=== PATIENT | male | born 1945 | race African-American/Black ===

== ENCOUNTER 2018-08-25 17:41 | Inpatient (IN) | payer MEDICARE, OTHER ==
[~2018-08-25] VITALS: Ht 180.3 cm; Wt 73.0 kg
[2018-08-25 17:58] LABS: BASOPHILS % 1.5 % (0.0-2.0); EOSINOPHILS % 2.6 % (0.0-5.0); HEMATOCRIT. 34.6 % (42.0-52.0); HEMOGLOBIN. 11.3 g/dL (14.0-18.0); LYMPHOCYTES % 19.3 % (20.0-50.0); MEAN CORPUSCULAR VOLUME 91.9 fL (80.0-94.0); MEAN PLATELET VOLUME 8.2 fl (7.4-10.4); MONOCYTES % 14.9 % (2.0-8.0); NEUTROPHILS % 61.7 % (40.0-76.0); PLATELET 157 x1000/uL (130-400); RED BLOOD CELL COUNT 3.76 mill/uL (4.7-6.1); RED CELL DISTRIBUTION WIDTH 17.4 % (11.6-14.6)
[2018-08-25 18:04] LABS: CHLORIDE 112 mEq/L (98-107)
[2018-08-25 18:05] LABS: INR 1.2
[2018-08-25 18:08] LABS: ETHANOL BLOOD < 10 mg/dL
[2018-08-25 18:11] LABS: LDL CHOLESTEROL 64 mg/dL (5-100)
[2018-08-25] MEDS ORDERED: DEXTROSE 50% WATER 50ML SYRINGE IV PRN (20:15)
[2018-08-25] MEDS ORDERED: DIPHENHYDRAMINE 50MG/ML VIAL IV PRN (20:15)
[2018-08-25] MEDS ORDERED: MAGNESIUM/ALUMINUM HYDROXIDE/SIMETHICONE 30ML UDC PO PRN (20:15)
[2018-08-25] MEDS ORDERED: LORAZEPAM 2MG/ML CPJ IV PRN (20:15)
[2018-08-25] MEDS ORDERED: HYDROMORPHONE HCL/PF 2MG/ML CPJ IV PRN (20:15)
[2018-08-25] MEDS ORDERED: IPRATROPIUM/ALBUTEROL 0.5-3(2.5)MG/3ML NEB INH PRN (20:15)
[2018-08-25] MEDS: INSULIN LISPRO 100 UNITS/ML SUBCUT SCH (21:00)
[2018-08-25] MEDS: BLOOD SUGAR DIAGNOSTIC STRIP TEST SCH (21:00)
[2018-08-25] MEDS: CLONIDINE 0.1MG TABLET PO PRN (23:49)
[2018-08-26] VITALS (41 sets, daily range): BP systolic 88–211; BP diastolic 55–102
[2018-08-26 00:34] LABS: CREATINE KINASE MB FRACTION 4.8 ng/mL (0.5-3.6)
[2018-08-26] MEDS: CLONIDINE 0.1MG TABLET PO PRN ×2 (05:06→18:22)
[2018-08-26] MEDS: SODIUM CHLORIDE 0.9% INJ 3ML FLUSH IVF SCH ×4 (06:00→22:01)
[2018-08-26 06:20] LABS: BASOPHILS % 0.8 % (0.0-2.0); EOSINOPHILS % 2.8 % (0.0-5.0); HEMATOCRIT. 31.9 % (42.0-52.0); HEMOGLOBIN. 10.7 g/dL (14.0-18.0); LYMPHOCYTES % 22.7 % (20.0-50.0); MEAN CORPUSCULAR VOLUME 92.5 fL (80.0-94.0); MONOCYTES % 13.7 % (2.0-8.0); PLATELET 137 x1000/uL (130-400); RED BLOOD CELL COUNT 3.45 mill/uL (4.7-6.1); RED CELL DISTRIBUTION WIDTH 17.9 % (11.6-14.6)
[2018-08-26 06:23] LABS: CHLORIDE 108 mEq/L (98-107)
[2018-08-26 06:31] LABS: CREATINE KINASE 201 IU/L (39-308)
[2018-08-26 06:32] LABS: T4 FREE 0.79 ng/dL (0.76-1.46)
[2018-08-26 06:34] LABS: CREATINE KINASE MB FRACTION 3.4 ng/mL (0.5-3.6)
[2018-08-26] MEDS: INSULIN LISPRO 100 UNITS/ML SUBCUT SCH ×4 (08:20→21:00)
[2018-08-26] MEDS: BLOOD SUGAR DIAGNOSTIC STRIP TEST SCH ×3 (09:00→21:53)
[2018-08-26] MEDS ORDERED: CLONIDINE 0.3MG TABLET PO PRN (10:15)
[2018-08-26] MEDS ORDERED: LABETALOL 5MG/ML SYR 20 MG/4 ML SYRINGE IV NR (14:00)
[2018-08-26] MEDS ORDERED: NIFEDIPINE XL 90MG TAB PO SCH (14:30)
[2018-08-26 15:00] LABS: CLARITY URINE CLEAR (CLEAR); COLOR URINE YELLOW (YELLOW); KETONES URINE NEGATIVE (NEGATIVE); LEUKOCYTE ESTERASE URINE NEGATIVE (NEGATIVE); NITRITE URINE NEGATIVE (NEGATIVE); OCCULT BLOOD URINE 1+ (NEGATIVE); PROTEIN URINE 3+ (NEGATIVE); SPECIFIC GRAVITY URINE 1.009 (1.005-1.030); UROBILINOGEN URINE 0.2 E.U./dL (0.2-1.0)
[2018-08-26 15:24] LABS: *AMPHETAMINES SCREEN URINE NEGATIVE (NEGATIVE)
[2018-08-26 15:25] LABS: *BARBITURATES SCREEN URINE NEGATIVE (NEGATIVE); *BENZODIAZEPINES SCREEN URINE NEGATIVE (NEGATIVE); *COCAINE SCREEN URINE NEGATIVE (NEGATIVE); METHADONE URINE SCREEN NEGATIVE (NEGATIVE); OPIATES URINE SCREEN NEGATIVE (NEGATIVE); PHENCYCLIDINE URINE SCREEN NEGATIVE (NEGATIVE)
[2018-08-26 15:26] LABS: CANNABINOID URINE SCREEN NEGATIVE (NEGATIVE)
[2018-08-26] MEDS ORDERED: HYDRALAZINE 20MG/ML VIAL IV NR (15:45)
[2018-08-26] MEDS: LOSARTAN POTASSIUM 50 MG TABLET PO SCH ×2 (16:04→21:00)
[2018-08-26] MEDS ORDERED: HYDRALAZINE 20MG/ML VIAL IV PRN (16:45)
[2018-08-26] MEDS: REPAGLINIDE 1MG TABLET PO SCH (17:00)
[2018-08-26] MEDS: SEVELAMER CARBONATE 800 MG TABLET PO SCH (17:00)
[2018-08-26] MEDS ORDERED: NIFE60TA64 MT (18:19)
[2018-08-26] MEDS ORDERED: FERR-71 MT (18:19)
[2018-08-26] MEDS ORDERED: TAMS0.4C31 MT (18:19)
[2018-08-26] MEDS ORDERED: OMEP20CA10 MT (18:19)
[2018-08-26] MEDS ORDERED: ASPI-1159 MT (18:19)
[2018-08-26] MEDS ORDERED: REN800 MT (18:19)
[2018-08-26] MEDS ORDERED: LABE200T28 MT (18:19)
[2018-08-26] MEDS ORDERED: ATOR-2 MT (18:21)
[2018-08-26] MEDS ORDERED: FOLI1TAB33 MT ×2 (18:21→18:22)
[2018-08-26] MEDS: NICARDIPINE 100 MG in DEXT 5% WATER 60 ML IV PRN (18:24)
[2018-08-26] MEDS: LABETALOL HCL 300MG TABLET PO SCH (21:00)
[2018-08-26] MEDS: LEVETIRACETAM 500 MG in SODIUM CHLORIDE 0.9% 100 ML IV SCH (22:01)
[2018-08-26] MEDS: ATORVASTATIN CALCIUM 40MG TABLET PO SCH (22:01)
[2018-08-27] VITALS (115 sets, daily range): BP systolic 91–172; BP diastolic 53–85
[2018-08-27] MEDS: ACETAMINOPHEN 325MG TABLET PO PRN (01:14)
[2018-08-27] MEDS: ONDANSETRON HCL 4MG/2ML INJ IV PRN ×2 (03:58→10:20)
[2018-08-27 05:39] LABS: BASOPHILS % 0.5 % (0.0-2.0); EOSINOPHILS % 0.5 % (0.0-5.0); HEMATOCRIT. 36.1 % (42.0-52.0); HEMOGLOBIN. 11.8 g/dL (14.0-18.0); LYMPHOCYTES % 8.6 % (20.0-50.0); MEAN CORPUSCULAR HEMOGLOBIN 29.7 pg (28.0-32.0); MEAN CORPUSCULAR VOLUME 91.4 fL (80.0-94.0); MEAN PLATELET VOLUME 8.3 fl (7.4-10.4); NEUTROPHILS % 83.4 % (40.0-76.0); PLATELET 154 x1000/uL (130-400); RED BLOOD CELL COUNT 3.95 mill/uL (4.7-6.1); RED CELL DISTRIBUTION WIDTH 17.2 % (11.6-14.6)
[2018-08-27] MEDS: SODIUM CHLORIDE 0.9% INJ 3ML FLUSH IVF SCH ×3 (06:16→21:20)
[2018-08-27] MEDS: BLOOD SUGAR DIAGNOSTIC STRIP TEST SCH ×4 (06:16→21:19)
[2018-08-27] MEDS: INSULIN LISPRO 100 UNITS/ML SUBCUT SCH ×4 (06:16→21:00)
[2018-08-27] MEDS: SEVELAMER CARBONATE 800 MG TABLET PO SCH ×3 (06:29→17:06)
[2018-08-27] MEDS: OMEPRAZOLE 20MG CAPSULE EXTENDED RELEASE PO SCH (06:29)
[2018-08-27] MEDS: REPAGLINIDE 1MG TABLET PO SCH ×3 (06:29→17:00)
[2018-08-27] MEDS: NICARDIPINE 100 MG in DEXT 5% WATER 60 ML IV PRN (06:44)
[2018-08-27] MEDS: LEVETIRACETAM 500 MG in SODIUM CHLORIDE 0.9% 100 ML IV SCH ×2 (09:00→20:45)
[2018-08-27] MEDS: TAMSULOSIN HCL 0.4MG SR CAPSULE PO SCH (09:05)
[2018-08-27] MEDS: DOCUSATE SODIUM 100MG CAPSULE PO PRN ×2 (09:05→17:06)
[2018-08-27] MEDS: FOLIC ACID/VITAMIN B COMP W-C TABLET PO SCH (09:05)
[2018-08-27] MEDS: LABETALOL HCL 300MG TABLET PO SCH ×2 (09:06→21:00)
[2018-08-27] MEDS: LOSARTAN POTASSIUM 50 MG TABLET PO SCH ×2 (09:06→21:00)
[2018-08-27 09:50] LABS: PHOSPHORUS 3.6 mg/dL (2.5-4.9)
[2018-08-27 09:55] LABS: CREATINE KINASE MB FRACTION 3.2 ng/mL (0.5-3.6)
[2018-08-27] MEDS: ATORVASTATIN CALCIUM 40MG TABLET PO SCH (20:45)
[2018-08-27] MEDS: AMLODIPINE 5MG TABLET PO SCH (21:00)
[2018-08-28] VITALS (85 sets, daily range): BP systolic 98–169; BP diastolic 47–97
[2018-08-28] MEDS: NICARDIPINE 100 MG in DEXT 5% WATER 60 ML IV PRN (03:45)
[2018-08-28 05:30] LABS: BASOPHILS % 0.5 % (0.0-2.0); EOSINOPHILS % 2.9 % (0.0-5.0); HEMATOCRIT. 33.4 % (42.0-52.0); HEMOGLOBIN. 11.1 g/dL (14.0-18.0); LYMPHOCYTES % 30.9 % (20.0-50.0); MEAN CORPUSCULAR HEMOGLOBIN 30.3 pg (28.0-32.0); MEAN CORPUSCULAR VOLUME 91.4 fL (80.0-94.0); MEAN PLATELET VOLUME 8.1 fl (7.4-10.4); MONOCYTES % 11.4 % (2.0-8.0); NEUTROPHILS % 54.3 % (40.0-76.0); PLATELET 151 x1000/uL (130-400); RED BLOOD CELL COUNT 3.65 mill/uL (4.7-6.1); RED CELL DISTRIBUTION WIDTH 16.5 % (11.6-14.6)
[2018-08-28] MEDS: OMEPRAZOLE 20MG CAPSULE EXTENDED RELEASE PO SCH (05:46)
[2018-08-28] MEDS: HYDROCODONE/ACETAMINOPHEN 10/325MG TABLET PO PRN (05:47)
[2018-08-28] MEDS: BLOOD SUGAR DIAGNOSTIC STRIP TEST SCH ×4 (05:49→21:36)
[2018-08-28] MEDS: SEVELAMER CARBONATE 800 MG TABLET PO SCH ×3 (05:49→17:52)
[2018-08-28] MEDS: SODIUM CHLORIDE 0.9% INJ 3ML FLUSH IVF SCH ×3 (05:49→22:56)
[2018-08-28] MEDS: INSULIN LISPRO 100 UNITS/ML SUBCUT SCH ×4 (05:50→21:00)
[2018-08-28] MEDS: REPAGLINIDE 1MG TABLET PO SCH ×3 (05:51→17:52)
[2018-08-28] MEDS: LOSARTAN POTASSIUM 50 MG TABLET PO SCH ×2 (08:45→21:27)
[2018-08-28] MEDS: AMLODIPINE 5MG TABLET PO SCH ×2 (08:47→21:27)
[2018-08-28] MEDS: LABETALOL HCL 300MG TABLET PO SCH ×2 (09:00→22:57)
[2018-08-28] MEDS: TAMSULOSIN HCL 0.4MG SR CAPSULE PO SCH (09:21)
[2018-08-28] MEDS: FOLIC ACID/VITAMIN B COMP W-C TABLET PO SCH (09:21)
[2018-08-28] MEDS: LEVETIRACETAM 500 MG in SODIUM CHLORIDE 0.9% 100 ML IV SCH ×2 (09:21→21:25)
[2018-08-28] MEDS ORDERED: HEPARIN SODIUM 1,000 UNIT/1ML VIAL IV SCH (12:15)
[2018-08-28] MEDS: ACETAMINOPHEN 325MG TABLET PO PRN (13:13)
[2018-08-28] MEDS: DOCUSATE SODIUM 100MG CAPSULE PO PRN (17:52)
[2018-08-28] MEDS: ATORVASTATIN CALCIUM 40MG TABLET PO SCH (21:27)
[2018-08-29] VITALS (57 sets, daily range): BP systolic 122–175; BP diastolic 58–95
[2018-08-29] MEDS: CLONIDINE 0.1MG TABLET PO PRN ×2 (01:36→18:54)
[2018-08-29 05:44] LABS: BASOPHILS % 0.5 % (0.0-2.0); EOSINOPHILS % 3.8 % (0.0-5.0); HEMATOCRIT. 36.1 % (42.0-52.0); HEMOGLOBIN. 11.7 g/dL (14.0-18.0); LYMPHOCYTES % 31.8 % (20.0-50.0); MEAN CORPUSCULAR HEMOGLOBIN 29.9 pg (28.0-32.0); MEAN CORPUSCULAR VOLUME 92.4 fL (80.0-94.0); MEAN PLATELET VOLUME 7.9 fl (7.4-10.4); NEUTROPHILS % 52.9 % (40.0-76.0); PLATELET 145 x1000/uL (130-400); RED BLOOD CELL COUNT 3.91 mill/uL (4.7-6.1)
[2018-08-29] MEDS: OMEPRAZOLE 20MG CAPSULE EXTENDED RELEASE PO SCH (06:23)
[2018-08-29] MEDS: GUAIFENESIN 200MG/10ML SUGAR FREE UDC PO PRN (06:23)
[2018-08-29] MEDS: BLOOD SUGAR DIAGNOSTIC STRIP TEST SCH ×4 (06:24→21:24)
[2018-08-29] MEDS: INSULIN LISPRO 100 UNITS/ML SUBCUT SCH ×4 (06:25→21:00)
[2018-08-29] MEDS: REPAGLINIDE 1MG TABLET PO SCH ×3 (07:00→17:00)
[2018-08-29] MEDS: AMLODIPINE 5MG TABLET PO SCH ×2 (08:17→21:23)
[2018-08-29] MEDS: SEVELAMER CARBONATE 800 MG TABLET PO SCH ×3 (08:17→18:54)
[2018-08-29] MEDS: LEVETIRACETAM 500 MG in SODIUM CHLORIDE 0.9% 100 ML IV SCH ×2 (08:17→21:23)
[2018-08-29] MEDS: TAMSULOSIN HCL 0.4MG SR CAPSULE PO SCH (08:17)
[2018-08-29] MEDS: LABETALOL HCL 300MG TABLET PO SCH (09:00)
[2018-08-29] MEDS: DOCUSATE SODIUM 100MG CAPSULE PO PRN (10:49)
[2018-08-29] MEDS: LOSARTAN POTASSIUM 50 MG TABLET PO SCH ×2 (10:50→21:23)
[2018-08-29] MEDS: FOLIC ACID/VITAMIN B COMP W-C TABLET PO SCH (10:51)
[2018-08-29] MEDS ORDERED: LABETALOL HCL 100MG TABLET PO SCH (21:00)
[2018-08-29] MEDS: ATORVASTATIN CALCIUM 40MG TABLET PO SCH (21:23)
[2018-08-29] MEDS: NICARDIPINE 100 MG in DEXT 5% WATER 60 ML IV PRN (23:21)
[2018-08-30] VITALS (44 sets, daily range): BP systolic 110–172; BP diastolic 21–97
[2018-08-30 05:32] LABS: BASOPHILS % 0.4 % (0.0-2.0); EOSINOPHILS % 4.3 % (0.0-5.0); HEMATOCRIT. 33.9 % (42.0-52.0); LYMPHOCYTES % 22.3 % (20.0-50.0); MEAN CORPUSCULAR HEMOGLOBIN 29.8 pg (28.0-32.0); MEAN CORPUSCULAR VOLUME 91.7 fL (80.0-94.0); MEAN PLATELET VOLUME 7.9 fl (7.4-10.4); PLATELET 148 x1000/uL (130-400); RED BLOOD CELL COUNT 3.69 mill/uL (4.7-6.1); RED CELL DISTRIBUTION WIDTH 16.3 % (11.6-14.6)
[2018-08-30] MEDS: BLOOD SUGAR DIAGNOSTIC STRIP TEST SCH ×5 (06:33→21:00)
[2018-08-30] MEDS: SEVELAMER CARBONATE 800 MG TABLET PO SCH ×3 (06:36→18:12)
[2018-08-30] MEDS: OMEPRAZOLE 20MG CAPSULE EXTENDED RELEASE PO SCH (06:36)
[2018-08-30] MEDS: INSULIN LISPRO 100 UNITS/ML SUBCUT SCH ×4 (06:37→21:00)
[2018-08-30] MEDS: GUAIFENESIN 200MG/10ML SUGAR FREE UDC PO PRN (06:37)
[2018-08-30] MEDS: REPAGLINIDE 1MG TABLET PO SCH ×2 (06:37→12:00)
[2018-08-30] MEDS: MINOXIDIL 2.5MG TABLET PO SCH ×2 (09:00→18:12)
[2018-08-30] MEDS: LOSARTAN POTASSIUM 50 MG TABLET PO SCH ×2 (09:00→20:53)
[2018-08-30] MEDS: NIFEDIPINE XL 60MG TAB PO SCH ×2 (09:15→20:54)
[2018-08-30] MEDS: LEVETIRACETAM 500 MG in SODIUM CHLORIDE 0.9% 100 ML IV SCH (09:34)
[2018-08-30] MEDS: FOLIC ACID/VITAMIN B COMP W-C TABLET PO SCH (09:35)
[2018-08-30] MEDS: TAMSULOSIN HCL 0.4MG SR CAPSULE PO SCH (09:35)
[2018-08-30] MEDS: DOCUSATE SODIUM 100MG CAPSULE PO SCH ×2 (09:40→18:11)
[2018-08-30] MEDS: HYDROCODONE/ACETAMINOPHEN 10/325MG TABLET PO PRN (09:41)
[2018-08-30] MEDS: LEVETIRACETAM 500MG TABLET PO SCH (20:53)
[2018-08-30] MEDS: ATORVASTATIN CALCIUM 40MG TABLET PO SCH (20:53)
[2018-08-30] MEDS: SODIUM CHLORIDE 0.9% INJ 3ML FLUSH IVF SCH (21:10)
[2018-08-30] MEDS ORDERED: MORPHINE SULFATE 4 MG/ML CPJ (NOT FOR IM USE) IV PRN (21:45)
[2018-08-30] MEDS: HYDROCODONE/ACETAMINOPHEN 5/325MG TABLET PO PRN (22:13)
[2018-08-31 00:10] VITALS: BP 187/80
[2018-08-31 00:27] VITALS: BP 158/70
[2018-08-31] MEDS: HYDROCODONE/ACETAMINOPHEN 5/325MG TABLET PO PRN ×2 (02:58→09:49)
[2018-08-31 04:00] VITALS: BP 178/70
[2018-08-31] MEDS ORDERED: CLONIDINE 0.1MG TABLET PO PRN (04:30)
[2018-08-31] MEDS: OMEPRAZOLE 20MG CAPSULE EXTENDED RELEASE PO SCH (06:20)
[2018-08-31] MEDS: SODIUM CHLORIDE 0.9% INJ 3ML FLUSH IVF SCH ×2 (06:20→14:00)
[2018-08-31] MEDS: INSULIN LISPRO 100 UNITS/ML SUBCUT SCH ×2 (07:07→12:50)
[2018-08-31] MEDS: BLOOD SUGAR DIAGNOSTIC STRIP TEST SCH ×3 (07:07→17:20)
[2018-08-31 08:00] VITALS: BP 132/60
[2018-08-31] MEDS: SEVELAMER CARBONATE 800 MG TABLET PO SCH ×2 (09:47→12:50)
[2018-08-31] MEDS: TAMSULOSIN HCL 0.4MG SR CAPSULE PO SCH (09:48)
[2018-08-31] MEDS: LOSARTAN POTASSIUM 50 MG TABLET PO SCH (09:49)
[2018-08-31] MEDS: MINOXIDIL 2.5MG TABLET PO SCH ×2 (09:50→17:17)
[2018-08-31] MEDS: FOLIC ACID/VITAMIN B COMP W-C TABLET PO SCH (09:50)
[2018-08-31] MEDS: NIFEDIPINE XL 60MG TAB PO SCH (09:50)
[2018-08-31] MEDS: LEVETIRACETAM 500MG TABLET PO SCH (09:51)
[2018-08-31 10:01] LABS: BASOPHILS % 0.6 % (0.0-2.0); EOSINOPHILS % 3.5 % (0.0-5.0); LYMPHOCYTES % 17.3 % (20.0-50.0); MEAN CORPUSCULAR HEMOGLOBIN 29.6 pg (28.0-32.0); MEAN CORPUSCULAR VOLUME 91.5 fL (80.0-94.0); MONOCYTES % 10.7 % (2.0-8.0); NEUTROPHILS % 67.9 % (40.0-76.0); PLATELET 189 x1000/uL (130-400); RED BLOOD CELL COUNT 4.05 mill/uL (4.7-6.1); RED CELL DISTRIBUTION WIDTH 16.4 % (11.6-14.6)
[2018-08-31] MEDS: DOCUSATE SODIUM 100MG CAPSULE PO SCH ×2 (10:02→17:16)
[2018-08-31 12:00] VITALS: BP 128/62
[2018-08-31] MEDS ORDERED: HYDRALAZINE 20MG/ML VIAL IV PRN (14:45)
[2018-08-31] MEDS ORDERED: LIDOCAINE 5% PATCH TOP SCH (16:00)
[2018-08-31 17:18] VITALS: BP 145/75
[2018-08-31] MEDS ORDERED: HYDRALAZINE HCL 100MG TABLET PO SCH (22:00)
== END 2018-08-31 17:50 | DRG 64 ==
LOC: ER 17:41 → 5EST 19:29 → ENRESERV 08-26 10:43 → MICUSO 08-26 16:48 → 6WST 08-30 16:54
PROVIDERS: ADMIT Internal Medicine Nephrology; ATTEND Internal Medicine Nephrology
PROC: 5A1D70Z Performance of Urinary Filtration, Intermittent, Less than 6 Hours Per Day (ICD-10-PCS; principal; 2018-08-31)
DX: I61.1 Nontraumatic intracerebral hemorrhage in hemisphere, cortical (principal); G93.41 Metabolic encephalopathy; N18.6 End stage renal disease; E46 Unspecified protein-calorie malnutrition; G45.9 Transient cerebral ischemic attack, unspecified; G81.94 Hemiplegia, unspecified affecting left nondominant side; E44.0 Moderate protein-calorie malnutrition; E87.1 Hypo-osmolality and hyponatremia; G95.89 Other specified diseases of spinal cord; I13.2 Hypertensive heart and chronic kidney disease with heart failure and with stage 5 chronic kidney disease, or end stage renal disease; N25.81 Secondary hyperparathyroidism of renal origin; G99.2 Myelopathy in diseases classified elsewhere; I16.0 Hypertensive urgency; E11.22 Type 2 diabetes mellitus with diabetic chronic kidney disease; C02.9 Malignant neoplasm of tongue, unspecified; D63.8 Anemia in other chronic diseases classified elsewhere; E04.2 Nontoxic multinodular goiter; E78.00 Pure hypercholesterolemia, unspecified; E78.5 Hyperlipidemia, unspecified; E87.8 Other disorders of electrolyte and fluid balance, not elsewhere classified; D72.819 Decreased white blood cell count, unspecified; E87.5 Hyperkalemia; W19.XXXA Unspecified fall, initial encounter; I25.10 Atherosclerotic heart disease of native coronary artery without angina pectoris; I44.1 Atrioventricular block, second degree; I45.10 Unspecified right bundle-branch block; I50.9 Heart failure, unspecified; M47.812 Spondylosis without myelopathy or radiculopathy, cervical region; M48.02 Spinal stenosis, cervical region; M48.04 Spinal stenosis, thoracic region; N40.0 Benign prostatic hyperplasia without lower urinary tract symptoms; M25.462 Effusion, left knee; M25.562 Pain in left knee; R00.1 Bradycardia, unspecified; R26.9 Unspecified abnormalities of gait and mobility; Z82.49 Family history of ischemic heart disease and other diseases of the circulatory system; Z83.3 Family history of diabetes mellitus; Z99.2 Dependence on renal dialysis; Z85.810 Personal history of malignant neoplasm of tongue; Z86.73 Personal history of transient ischemic attack (TIA), and cerebral infarction without residual deficits; Z87.891 Personal history of nicotine dependence; Z91.19 Patient's noncompliance with other medical treatment and regimen; Y93.89 Activity, other specified; Y92.89 Other specified places as the place of occurrence of the external cause; Y99.8 Other external cause status; Z68.22 Body mass index [BMI] 22.0-22.9, adult
CPT/HCPCS: 36415; 71045; 72141; 73560; 73721; 76536; 80048; 80305; 82550; 82553; 82962; 83721; 83735; 83970; 84100; 84439; 84443; 84484; 92610; 93005; 93306; 93970; 96374; 96375; 97162; 97167; 97530; 97535; 99291; G0482; J0360; J1953; J2405; J3490; J7050; J7060

== ENCOUNTER 2018-08-31 18:18 | Inpatient (IN) | payer MEDICARE, OTHER ==
[~2018-08-31] VITALS: Ht 180.3 cm; Wt 73.0 kg
[2018-08-31 17:50] VITALS: BP 126/61
[2018-08-31 18:00] VITALS: BP 126/61
[~2018-08-31 18:18] MED LIST: ASPI-1159 MT; ATOR-2 MT; FERR-71 MT; FOLI1TAB33 MT; LABE200T28 MT; NIFE60TA64 MT; OMEP20CA10 MT; REN800 MT; TAMS0.4C31 MT
[2018-08-31 20:00] VITALS: BP 110/54
[2018-08-31] MEDS ORDERED: ACETAMINOPHEN 325MG TABLET PO PRN (20:15)
[2018-08-31] MEDS ORDERED: HYDRALAZINE 5 MG in SODIUM CHLORIDE 0.9% 49.5 ML IV PRN (20:15)
[2018-08-31] MEDS ORDERED: DEXTROSE 50% WATER 50ML SYRINGE IV PRN ×2 (20:30)
[2018-08-31] MEDS ORDERED: IPRATROPIUM/ALBUTEROL 0.5-3(2.5)MG/3ML NEB HHN PRN (21:00)
[2018-08-31] MEDS ORDERED: MORPHINE SULFATE 4 MG/ML CPJ (NOT FOR IM USE) IV PRN (21:00)
[2018-08-31] MEDS ORDERED: DIPHENHYDRAMINE 50MG/ML VIAL IV PRN (21:00)
[2018-08-31] MEDS ORDERED: GUAIFENESIN 200MG/10ML SUGAR FREE UDC PO PRN (21:00)
[2018-08-31] MEDS ORDERED: ONDANSETRON HCL 4MG/2ML INJ IV PRN (21:00)
[2018-08-31] MEDS: INSULIN LISPRO 100 UNITS/ML SUBCUT SCH (21:00)
[2018-08-31] MEDS: LEVETIRACETAM 500MG TABLET PO SCH (21:48)
[2018-08-31] MEDS: ATORVASTATIN CALCIUM 40MG TABLET PO SCH (21:48)
[2018-08-31] MEDS: NIFEDIPINE XL 60MG TAB PO SCH (21:48)
[2018-08-31] MEDS: HYDROCODONE/ACETAMINOPHEN 5/325MG TABLET PO PRN (21:50)
[2018-08-31] MEDS: BLOOD SUGAR DIAGNOSTIC STRIP TEST SCH (21:51)
[2018-08-31] MEDS: SODIUM CHLORIDE 0.9% INJ 3ML FLUSH IVF SCH (23:50)
[2018-08-31] MEDS: HYDRALAZINE HCL 100MG TABLET PO SCH (23:50)
[2018-09-01] MEDS: HYDRALAZINE HCL 100MG TABLET PO SCH ×3 (06:06→22:00)
[2018-09-01] MEDS: BLOOD SUGAR DIAGNOSTIC STRIP TEST SCH ×4 (06:17→20:16)
[2018-09-01] MEDS: OMEPRAZOLE 20MG CAPSULE EXTENDED RELEASE PO SCH (06:18)
[2018-09-01] MEDS: SODIUM CHLORIDE 0.9% INJ 3ML FLUSH IVF SCH ×3 (06:18→23:32)
[2018-09-01 06:35] LABS: BASOPHILS % 0.6 % (0.0-2.0); EOSINOPHILS % 4.2 % (0.0-5.0); HEMATOCRIT. 34.2 % (42.0-52.0); HEMOGLOBIN. 11.3 g/dL (14.0-18.0); LYMPHOCYTES % 19.5 % (20.0-50.0); MEAN CORPUSCULAR HEMOGLOBIN 29.8 pg (28.0-32.0); MONOCYTES % 13.7 % (2.0-8.0); PLATELET 187 x1000/uL (130-400); RED CELL DISTRIBUTION WIDTH 15.6 % (11.6-14.6)
[2018-09-01 07:38] LABS: CHLORIDE 98 mEq/L (98-107)
[2018-09-01 08:00] VITALS: BP 129/93
[2018-09-01] MEDS: INSULIN LISPRO 100 UNITS/ML SUBCUT SCH ×4 (09:00→20:16)
[2018-09-01] MEDS: MINOXIDIL 2.5MG TABLET PO SCH ×2 (09:00→17:00)
[2018-09-01] MEDS ORDERED: TAMSULOSIN HCL 0.4MG SR CAPSULE PO SCH (09:00)
[2018-09-01] MEDS: FOLIC ACID/VITAMIN B COMP W-C TABLET PO SCH (10:29)
[2018-09-01] MEDS: DOCUSATE SODIUM 100MG CAPSULE PO SCH ×2 (10:29→17:38)
[2018-09-01] MEDS: LOSARTAN POTASSIUM 50 MG TABLET PO SCH ×2 (10:29→21:00)
[2018-09-01] MEDS: NIFEDIPINE XL 60MG TAB PO SCH ×2 (10:29→21:00)
[2018-09-01] MEDS: LEVETIRACETAM 500MG TABLET PO SCH (10:30)
[2018-09-01] MEDS: SEVELAMER CARBONATE 800 MG TABLET PO SCH ×3 (10:30→17:38)
[2018-09-01] MEDS: TAMSULOSIN HCL 0.4MG SR CAPSULE PO SCH (10:30)
[2018-09-01] MEDS: LIDOCAINE 5% PATCH TOP SCH (10:31)
[2018-09-01] MEDS: HYDROCODONE/ACETAMINOPHEN 5/325MG TABLET PO PRN (13:50)
[2018-09-01 20:00] VITALS: BP 138/60
[2018-09-01] MEDS ORDERED: EPOETIN ALFA 4000UNITS/ML VIAL SUBCUT SCH (21:00)
[2018-09-02] MEDS: ATORVASTATIN CALCIUM 40MG TABLET PO SCH ×2 (01:22→21:04)
[2018-09-02] MEDS: LEVETIRACETAM 500MG TABLET PO SCH ×3 (01:23→21:04)
[2018-09-02] MEDS: HYDROCODONE/ACETAMINOPHEN 5/325MG TABLET PO PRN ×2 (02:15→06:19)
[2018-09-02] MEDS: HYDRALAZINE HCL 100MG TABLET PO SCH ×3 (06:00→22:00)
[2018-09-02] MEDS: OMEPRAZOLE 20MG CAPSULE EXTENDED RELEASE PO SCH (06:08)
[2018-09-02] MEDS: BLOOD SUGAR DIAGNOSTIC STRIP TEST SCH ×4 (06:08→21:01)
[2018-09-02] MEDS: INSULIN LISPRO 100 UNITS/ML SUBCUT SCH ×4 (06:08→21:00)
[2018-09-02] MEDS: SODIUM CHLORIDE 0.9% INJ 3ML FLUSH IVF SCH ×3 (06:08→21:05)
[2018-09-02 07:38] LABS: BASOPHILS % 0.5 % (0.0-2.0); HEMATOCRIT. 34.2 % (42.0-52.0); HEMOGLOBIN. 11.4 g/dL (14.0-18.0); MEAN CORPUSCULAR VOLUME 89.9 fL (80.0-94.0); MEAN PLATELET VOLUME 8.2 fl (7.4-10.4); NEUTROPHILS % 71.5 % (40.0-76.0); PLATELET 207 x1000/uL (130-400); RED CELL DISTRIBUTION WIDTH 16.1 % (11.6-14.6)
[2018-09-02 07:40] LABS: PROSTRATE SPECIFIC AG TOTAL 0.54 ng/mL (0.0-4.0)
[2018-09-02 07:46] LABS: PHOSPHORUS 2.8 mg/dL (2.5-4.9)
[2018-09-02 08:00] VITALS: BP 124/64
[2018-09-02] MEDS: LIDOCAINE 5% PATCH TOP SCH (09:07)
[2018-09-02] MEDS: LOSARTAN POTASSIUM 50 MG TABLET PO SCH ×2 (09:07→21:04)
[2018-09-02] MEDS: SEVELAMER CARBONATE 800 MG TABLET PO SCH ×3 (09:08→16:31)
[2018-09-02] MEDS: DOCUSATE SODIUM 100MG CAPSULE PO SCH ×2 (09:08→16:32)
[2018-09-02] MEDS: TAMSULOSIN HCL 0.4MG SR CAPSULE PO SCH (09:08)
[2018-09-02] MEDS: NIFEDIPINE XL 60MG TAB PO SCH ×2 (09:09→21:00)
[2018-09-02] MEDS: FOLIC ACID/VITAMIN B COMP W-C TABLET PO SCH (09:10)
[2018-09-02] MEDS: MINOXIDIL 2.5MG TABLET PO SCH ×2 (09:10→16:31)
[2018-09-02] MEDS ORDERED: LIDOCAINE HCL 1% 20ML VIAL (Pyxis) INJ ONE (10:50)
[2018-09-02] MEDS ORDERED: SODIUM BICARBONATE 4% (2.4MEQ) 5ML VIAL IV ONE (10:51)
[2018-09-02] MEDS ORDERED: NA PHOS,M-B/NA PHOS,DI-BA ENEMA 118ML PR NR (11:00)
[2018-09-02] MEDS ORDERED: BISACODYL 10MG SUPP PR PRN (11:00)
[2018-09-02 12:33] LABS: FOLIC ACID (FOLATE) SERUM 18.6 ng/mL (>5.38)
[2018-09-02] MEDS: LACTULOSE 20G/30ML UDC PO SCH ×3 (13:11→21:04)
[2018-09-02 20:00] VITALS: BP 107/49
[2018-09-02] MEDS: POLYETHYLENE GLYCOL 3350 (17GM) 1 DOSE PACK PO SCH (21:04)
[2018-09-03] MEDS: NA PHOS,M-B/NA PHOS,DI-BA ENEMA 118ML PR PRN (00:24)
[2018-09-03] MEDS: SODIUM CHLORIDE 0.9% INJ 3ML FLUSH IVF SCH ×3 (05:08→21:47)
[2018-09-03] MEDS: HYDRALAZINE HCL 100MG TABLET PO SCH ×3 (06:03→22:00)
[2018-09-03] MEDS: BLOOD SUGAR DIAGNOSTIC STRIP TEST SCH ×4 (06:03→21:32)
[2018-09-03 07:10] LABS: HEMATOCRIT. 34.6 % (42.0-52.0); HEMOGLOBIN. 11.4 g/dL (14.0-18.0); MEAN CORPUSCULAR HEMOGLOBIN 29.9 pg (28.0-32.0); MEAN CORPUSCULAR VOLUME 90.3 fL (80.0-94.0); MEAN PLATELET VOLUME 8.1 fl (7.4-10.4); PLATELET 222 x1000/uL (130-400); RED BLOOD CELL COUNT 3.83 mill/uL (4.7-6.1)
[2018-09-03 08:00] VITALS: BP 109/46
[2018-09-03] MEDS: LACTULOSE 20G/30ML UDC PO SCH ×2 (08:28→13:45)
[2018-09-03] MEDS: FOLIC ACID/VITAMIN B COMP W-C TABLET PO SCH (08:29)
[2018-09-03] MEDS: LEVETIRACETAM 500MG TABLET PO SCH ×2 (08:29→21:28)
[2018-09-03] MEDS: DOCUSATE SODIUM 100MG CAPSULE PO SCH ×2 (08:29→17:53)
[2018-09-03] MEDS: SEVELAMER CARBONATE 800 MG TABLET PO SCH ×3 (08:29→17:53)
[2018-09-03] MEDS: LIDOCAINE 5% PATCH TOP SCH (08:29)
[2018-09-03] MEDS: LOSARTAN POTASSIUM 50 MG TABLET PO SCH (08:30)
[2018-09-03] MEDS: TAMSULOSIN HCL 0.4MG SR CAPSULE PO SCH (08:30)
[2018-09-03] MEDS: MINOXIDIL 2.5MG TABLET PO SCH ×2 (08:31→17:00)
[2018-09-03] MEDS: NIFEDIPINE XL 60MG TAB PO SCH (08:32)
[2018-09-03] MEDS: INSULIN LISPRO 100 UNITS/ML SUBCUT SCH ×4 (08:32→21:00)
[2018-09-03] MEDS ORDERED: FAMOTIDINE 20MG TABLET PO SCH (09:00)
[2018-09-03] MEDS: HYDROCODONE/ACETAMINOPHEN 5/325MG TABLET PO PRN (15:35)
[2018-09-03 16:10] LABS: PLATELET ESTIMATE NORMAL
[2018-09-03 20:00] VITALS: BP 120/55
[2018-09-03] MEDS: POLYETHYLENE GLYCOL 3350 (17GM) 1 DOSE PACK PO SCH (21:00)
[2018-09-03] MEDS: ATORVASTATIN CALCIUM 40MG TABLET PO SCH (21:28)
[2018-09-04 04:30] LABS: CLARITY URINE CLEAR (CLEAR); COLOR URINE YELLOW (YELLOW); KETONES URINE NEGATIVE (NEGATIVE); LEUKOCYTE ESTERASE URINE NEGATIVE (NEGATIVE); NITRITE URINE NEGATIVE (NEGATIVE); OCCULT BLOOD URINE NEGATIVE (NEGATIVE); PROTEIN URINE 4+ (NEGATIVE); SPECIFIC GRAVITY URINE 1.019 (1.005-1.030); UROBILINOGEN URINE 0.2 E.U./dL (0.2-1.0)
[2018-09-04] MEDS: HYDRALAZINE HCL 100MG TABLET PO SCH ×3 (06:00→21:11)
[2018-09-04] MEDS: BLOOD SUGAR DIAGNOSTIC STRIP TEST SCH ×4 (06:32→20:24)
[2018-09-04] MEDS: SODIUM CHLORIDE 0.9% INJ 3ML FLUSH IVF SCH ×3 (06:32→21:11)
[2018-09-04 08:13] VITALS: BP 145/67
[2018-09-04] MEDS: TAMSULOSIN HCL 0.4MG SR CAPSULE PO SCH (08:49)
[2018-09-04] MEDS: HYDROCODONE/ACETAMINOPHEN 5/325MG TABLET PO PRN ×2 (08:50→19:34)
[2018-09-04] MEDS: FOLIC ACID/VITAMIN B COMP W-C TABLET PO SCH (08:50)
[2018-09-04] MEDS: LEVETIRACETAM 500MG TABLET PO SCH ×2 (08:50→20:24)
[2018-09-04] MEDS: SEVELAMER CARBONATE 800 MG TABLET PO SCH ×3 (08:50→17:29)
[2018-09-04] MEDS: MINOXIDIL 2.5MG TABLET PO SCH ×2 (08:50→17:00)
[2018-09-04] MEDS: DOCUSATE SODIUM 100MG CAPSULE PO SCH ×2 (08:51→17:29)
[2018-09-04] MEDS: INSULIN LISPRO 100 UNITS/ML SUBCUT SCH ×4 (08:51→20:25)
[2018-09-04] MEDS: LIDOCAINE 5% PATCH TOP SCH (08:51)
[2018-09-04] MEDS: CYANOCOBALAMIN 1000MCG/ML VIAL IM SCH (12:00)
[2018-09-04 20:00] VITALS: BP 113/62
[2018-09-04] MEDS: ATORVASTATIN CALCIUM 40MG TABLET PO SCH (20:24)
[2018-09-04] MEDS: POLYETHYLENE GLYCOL 3350 (17GM) 1 DOSE PACK PO SCH (20:25)
[2018-09-05] MEDS: NA PHOS,M-B/NA PHOS,DI-BA ENEMA 118ML PR PRN ×2 (00:22→21:11)
[2018-09-05] MEDS: SODIUM CHLORIDE 0.9% INJ 3ML FLUSH IVF SCH ×3 (05:32→21:12)
[2018-09-05] MEDS: HYDRALAZINE HCL 100MG TABLET PO SCH ×3 (05:33→22:00)
[2018-09-05] MEDS: INSULIN LISPRO 100 UNITS/ML SUBCUT SCH ×4 (05:33→21:00)
[2018-09-05] MEDS: BLOOD SUGAR DIAGNOSTIC STRIP TEST SCH ×4 (05:33→21:11)
[2018-09-05] MEDS: DOCUSATE SODIUM 100MG CAPSULE PO SCH ×2 (08:35→17:16)
[2018-09-05] MEDS: LEVETIRACETAM 500MG TABLET PO SCH ×2 (08:35→21:11)
[2018-09-05] MEDS: FOLIC ACID/VITAMIN B COMP W-C TABLET PO SCH (08:35)
[2018-09-05] MEDS: SEVELAMER CARBONATE 800 MG TABLET PO SCH ×3 (08:35→17:16)
[2018-09-05] MEDS: MINOXIDIL 2.5MG TABLET PO SCH ×2 (08:36→17:17)
[2018-09-05] MEDS: TAMSULOSIN HCL 0.4MG SR CAPSULE PO SCH (08:36)
[2018-09-05 08:37] VITALS: BP 135/57
[2018-09-05] MEDS: LIDOCAINE 5% PATCH TOP SCH (08:37)
[2018-09-05] MEDS: CYANOCOBALAMIN 1000MCG/ML VIAL IM SCH (08:37)
[2018-09-05] MEDS: BISACODYL 5MG TABLET PO PRN (12:39)
[2018-09-05 12:56] VITALS: BP 128/68
[2018-09-05] MEDS ORDERED: LACTULOSE 20G/30ML UDC PO PRN (16:15)
[2018-09-05 16:50] VITALS: BP 134/75
[2018-09-05 20:00] VITALS: BP 103/43
[2018-09-05] MEDS: POLYETHYLENE GLYCOL 3350 (17GM) 1 DOSE PACK PO SCH ×2 (21:00→23:39)
[2018-09-05] MEDS: ATORVASTATIN CALCIUM 40MG TABLET PO SCH (21:11)
[2018-09-06 04:11] LABS: 25-HYDROXY VITAMIN D3 30 ng/mL (.)
[2018-09-06] MEDS: BLOOD SUGAR DIAGNOSTIC STRIP TEST SCH ×4 (05:30→21:19)
[2018-09-06] MEDS: SODIUM CHLORIDE 0.9% INJ 3ML FLUSH IVF SCH ×3 (05:30→21:20)
[2018-09-06] MEDS: HYDRALAZINE HCL 100MG TABLET PO SCH ×3 (05:36→21:28)
[2018-09-06] MEDS: INSULIN LISPRO 100 UNITS/ML SUBCUT SCH ×4 (05:37→21:00)
[2018-09-06 07:20] LABS: BASOPHILS % 0.6 % (0.0-2.0); EOSINOPHILS % 5.8 % (0.0-5.0); HEMATOCRIT. 32.6 % (42.0-52.0); HEMOGLOBIN. 10.5 g/dL (14.0-18.0); LYMPHOCYTES % 19.2 % (20.0-50.0); MEAN CORPUSCULAR HEMOGLOBIN 29.2 pg (28.0-32.0); MEAN CORPUSCULAR VOLUME 90.4 fL (80.0-94.0); MEAN PLATELET VOLUME 7.9 fl (7.4-10.4); MONOCYTES % 13.4 % (2.0-8.0); PLATELET 240 x1000/uL (130-400); RED BLOOD CELL COUNT 3.61 mill/uL (4.7-6.1); RED CELL DISTRIBUTION WIDTH 16.1 % (11.6-14.6)
[2018-09-06 08:00] VITALS: BP 123/55
[2018-09-06] MEDS: TAMSULOSIN HCL 0.4MG SR CAPSULE PO SCH (09:00)
[2018-09-06] MEDS: LIDOCAINE 5% PATCH TOP SCH (09:00)
[2018-09-06] MEDS: MINOXIDIL 2.5MG TABLET PO SCH (09:00)
[2018-09-06] MEDS: CYANOCOBALAMIN 1000MCG/ML VIAL IM SCH (09:00)
[2018-09-06] MEDS: SEVELAMER CARBONATE 800 MG TABLET PO SCH ×3 (09:49→17:10)
[2018-09-06] MEDS: LEVETIRACETAM 500MG TABLET PO SCH ×2 (09:49→21:19)
[2018-09-06] MEDS: FOLIC ACID/VITAMIN B COMP W-C TABLET PO SCH (09:49)
[2018-09-06] MEDS: DOCUSATE SODIUM 100MG CAPSULE PO SCH ×2 (09:52→17:10)
[2018-09-06] MEDS: ERGOCALCIFEROL 50000UNITS CAPSULE PO SCH (17:10)
[2018-09-06 20:00] VITALS: BP 102/42
[2018-09-06] MEDS ORDERED: EPOETIN ALFA 4000UNITS/ML VIAL SUBCUT SCH (21:00)
[2018-09-06] MEDS: ATORVASTATIN CALCIUM 40MG TABLET PO SCH (21:19)
[2018-09-06] MEDS: POLYETHYLENE GLYCOL 3350 (17GM) 1 DOSE PACK PO SCH (21:24)
[2018-09-07] MEDS: BLOOD SUGAR DIAGNOSTIC STRIP TEST SCH ×4 (05:51→20:21)
[2018-09-07] MEDS: SODIUM CHLORIDE 0.9% INJ 3ML FLUSH IVF SCH ×3 (05:51→21:03)
[2018-09-07] MEDS: HYDRALAZINE HCL 100MG TABLET PO SCH ×3 (05:57→21:03)
[2018-09-07] MEDS: INSULIN LISPRO 100 UNITS/ML SUBCUT SCH ×4 (05:58→20:21)
[2018-09-07] MEDS: CYANOCOBALAMIN 1000MCG/ML VIAL IM SCH (07:58)
[2018-09-07 08:00] VITALS: BP 113/43
[2018-09-07] MEDS: FOLIC ACID/VITAMIN B COMP W-C TABLET PO SCH (08:20)
[2018-09-07] MEDS: LEVETIRACETAM 500MG TABLET PO SCH ×2 (08:20→20:21)
[2018-09-07] MEDS: LIDOCAINE 5% PATCH TOP SCH ×2 (08:20→08:27)
[2018-09-07] MEDS: DOCUSATE SODIUM 100MG CAPSULE PO SCH ×2 (08:20→17:26)
[2018-09-07] MEDS: SEVELAMER CARBONATE 800 MG TABLET PO SCH ×3 (08:20→17:26)
[2018-09-07] MEDS: TAMSULOSIN HCL 0.4MG SR CAPSULE PO SCH (08:21)
[2018-09-07 20:00] VITALS: BP 138/50
[2018-09-07] MEDS: ATORVASTATIN CALCIUM 40MG TABLET PO SCH (20:21)
[2018-09-07] MEDS: POLYETHYLENE GLYCOL 3350 (17GM) 1 DOSE PACK PO SCH (20:21)
[2018-09-08] MEDS: HYDRALAZINE HCL 100MG TABLET PO SCH ×3 (06:00→21:38)
[2018-09-08] MEDS: SODIUM CHLORIDE 0.9% INJ 3ML FLUSH IVF SCH ×3 (06:00→21:09)
[2018-09-08] MEDS: BLOOD SUGAR DIAGNOSTIC STRIP TEST SCH ×4 (06:36→21:09)
[2018-09-08] MEDS: INSULIN LISPRO 100 UNITS/ML SUBCUT SCH ×4 (06:36→21:00)
[2018-09-08 07:05] LABS: EOSINOPHILS % 6.2 % (0.0-5.0); HEMATOCRIT. 32.5 % (42.0-52.0); HEMOGLOBIN. 10.6 g/dL (14.0-18.0); LYMPHOCYTES % 23.6 % (20.0-50.0); MEAN CORPUSCULAR HEMOGLOBIN 29.5 pg (28.0-32.0); MEAN CORPUSCULAR VOLUME 90.6 fL (80.0-94.0); MEAN PLATELET VOLUME 7.9 fl (7.4-10.4); MONOCYTES % 14.7 % (2.0-8.0); NEUTROPHILS % 54.5 % (40.0-76.0); PLATELET 242 x1000/uL (130-400); RED BLOOD CELL COUNT 3.59 mill/uL (4.7-6.1); RED CELL DISTRIBUTION WIDTH 15.7 % (11.6-14.6)
[2018-09-08 08:00] VITALS: BP 144/69
[2018-09-08] MEDS: LEVETIRACETAM 500MG TABLET PO SCH ×2 (08:54→20:12)
[2018-09-08] MEDS: LIDOCAINE 5% PATCH TOP SCH (08:54)
[2018-09-08] MEDS: SEVELAMER CARBONATE 800 MG TABLET PO SCH ×3 (08:54→16:50)
[2018-09-08] MEDS: FOLIC ACID/VITAMIN B COMP W-C TABLET PO SCH (08:54)
[2018-09-08] MEDS: DOCUSATE SODIUM 100MG CAPSULE PO SCH ×2 (08:54→16:49)
[2018-09-08] MEDS: TAMSULOSIN HCL 0.4MG SR CAPSULE PO SCH (08:55)
[2018-09-08] MEDS ORDERED: HYDROCODONE/ACETAMINOPHEN 10/325MG TABLET PO PRN (11:00)
[2018-09-08] MEDS: HYDROCODONE/ACETAMINOPHEN 10/325MG TABLET PO PRN ×2 (11:27→20:13)
[2018-09-08 13:46] VITALS: BP 151/71
[2018-09-08 20:00] VITALS: BP 137/80
[2018-09-08] MEDS: POLYETHYLENE GLYCOL 3350 (17GM) 1 DOSE PACK PO SCH (20:12)
[2018-09-08] MEDS: ATORVASTATIN CALCIUM 40MG TABLET PO SCH (20:19)
[2018-09-08 23:12] VITALS: BP 123/70
[2018-09-09] MEDS: HYDRALAZINE HCL 100MG TABLET PO SCH ×3 (05:40→21:17)
[2018-09-09] MEDS: SODIUM CHLORIDE 0.9% INJ 3ML FLUSH IVF SCH ×3 (05:41→22:00)
[2018-09-09] MEDS: BLOOD SUGAR DIAGNOSTIC STRIP TEST SCH ×4 (05:46→21:14)
[2018-09-09] MEDS: INSULIN LISPRO 100 UNITS/ML SUBCUT SCH ×5 (06:14→21:00)
[2018-09-09 08:46] VITALS: BP 124/54
[2018-09-09] MEDS: LIDOCAINE 5% PATCH TOP SCH (09:00)
[2018-09-09] MEDS: SEVELAMER CARBONATE 800 MG TABLET PO SCH ×3 (09:03→16:30)
[2018-09-09] MEDS: FOLIC ACID/VITAMIN B COMP W-C TABLET PO SCH (09:03)
[2018-09-09] MEDS: LEVETIRACETAM 500MG TABLET PO SCH ×2 (09:03→21:10)
[2018-09-09] MEDS: TAMSULOSIN HCL 0.4MG SR CAPSULE PO SCH (09:03)
[2018-09-09] MEDS: DOCUSATE SODIUM 100MG CAPSULE PO SCH ×2 (09:03→16:30)
[2018-09-09] MEDS: HYDROCODONE/ACETAMINOPHEN 10/325MG TABLET PO PRN ×2 (10:06→21:45)
[2018-09-09 14:31] VITALS: BP 92/66
[2018-09-09] MEDS: HYDROCODONE/ACETAMINOPHEN 5/325MG TABLET PO PRN (16:31)
[2018-09-09 20:00] VITALS: BP 164/65
[2018-09-09] MEDS: POLYETHYLENE GLYCOL 3350 (17GM) 1 DOSE PACK PO SCH (21:10)
[2018-09-09] MEDS: ATORVASTATIN CALCIUM 40MG TABLET PO SCH (21:10)
[2018-09-10] MEDS: SODIUM CHLORIDE 0.9% INJ 3ML FLUSH IVF SCH ×3 (06:00→22:00)
[2018-09-10] MEDS: BLOOD SUGAR DIAGNOSTIC STRIP TEST SCH ×4 (06:03→21:00)
[2018-09-10] MEDS: HYDRALAZINE HCL 100MG TABLET PO SCH ×3 (06:08→23:38)
[2018-09-10 07:26] LABS: HEMOGLOBIN. 10.4 g/dL (14.0-18.0); MEAN CORPUSCULAR HEMOGLOBIN 29.6 pg (28.0-32.0); MEAN CORPUSCULAR VOLUME 90.9 fL (80.0-94.0); PLATELET 213 x1000/uL (130-400); RED BLOOD CELL COUNT 3.51 mill/uL (4.7-6.1)
[2018-09-10 08:21] VITALS: BP 123/55
[2018-09-10] MEDS: LIDOCAINE 5% PATCH TOP SCH (09:00)
[2018-09-10] MEDS: INSULIN LISPRO 100 UNITS/ML SUBCUT SCH ×4 (09:00→21:00)
[2018-09-10] MEDS: SEVELAMER CARBONATE 800 MG TABLET PO SCH ×3 (09:05→16:38)
[2018-09-10] MEDS: LEVETIRACETAM 500MG TABLET PO SCH ×2 (09:05→23:37)
[2018-09-10] MEDS: FOLIC ACID/VITAMIN B COMP W-C TABLET PO SCH (09:05)
[2018-09-10] MEDS: DOCUSATE SODIUM 100MG CAPSULE PO SCH ×2 (09:05→16:38)
[2018-09-10] MEDS: TAMSULOSIN HCL 0.4MG SR CAPSULE PO SCH (09:07)
[2018-09-10] MEDS: HYDROCODONE/ACETAMINOPHEN 10/325MG TABLET PO PRN ×2 (12:07→19:27)
[2018-09-10 14:14] LABS: PLATELET ESTIMATE NORMAL
[2018-09-10] MEDS: AMMONIUM LACTATE 12% LOTION 240ML TOP SCH ×2 (16:18→23:53)
[2018-09-10] MEDS: BISACODYL 5MG TABLET PO PRN (17:38)
[2018-09-10 20:00] VITALS: BP 163/75
[2018-09-10] MEDS: POLYETHYLENE GLYCOL 3350 (17GM) 1 DOSE PACK PO SCH (23:37)
[2018-09-10] MEDS: ATORVASTATIN CALCIUM 40MG TABLET PO SCH (23:37)
[2018-09-10 23:46] VITALS: BP 146/74
[2018-09-11] MEDS: SODIUM CHLORIDE 0.9% INJ 3ML FLUSH IVF SCH ×3 (06:00→22:00)
[2018-09-11] MEDS: HYDROCODONE/ACETAMINOPHEN 10/325MG TABLET PO PRN ×2 (06:01→12:56)
[2018-09-11] MEDS: HYDRALAZINE HCL 100MG TABLET PO SCH ×3 (06:02→21:50)
[2018-09-11] MEDS: NA PHOS,M-B/NA PHOS,DI-BA ENEMA 118ML PR PRN (06:02)
[2018-09-11] MEDS: BLOOD SUGAR DIAGNOSTIC STRIP TEST SCH ×4 (06:06→21:50)
[2018-09-11] MEDS: INSULIN LISPRO 100 UNITS/ML SUBCUT SCH ×4 (06:06→21:00)
[2018-09-11 08:31] VITALS: BP 128/59
[2018-09-11] MEDS: LIDOCAINE 5% PATCH TOP SCH (09:00)
[2018-09-11] MEDS: LEVETIRACETAM 500MG TABLET PO SCH ×2 (09:06→21:50)
[2018-09-11] MEDS: TAMSULOSIN HCL 0.4MG SR CAPSULE PO SCH (09:06)
[2018-09-11] MEDS: FOLIC ACID/VITAMIN B COMP W-C TABLET PO SCH (09:06)
[2018-09-11] MEDS: DOCUSATE SODIUM 100MG CAPSULE PO SCH ×2 (09:06→16:06)
[2018-09-11] MEDS: AMMONIUM LACTATE 12% LOTION 240ML TOP SCH ×2 (09:06→21:56)
[2018-09-11] MEDS: SEVELAMER CARBONATE 800 MG TABLET PO SCH ×3 (09:06→16:47)
[2018-09-11 20:00] VITALS: BP 144/73
[2018-09-11] MEDS: ATORVASTATIN CALCIUM 40MG TABLET PO SCH (21:50)
[2018-09-11] MEDS: HYDROCODONE/ACETAMINOPHEN 5/325MG TABLET PO PRN (21:51)
[2018-09-11] MEDS: POLYETHYLENE GLYCOL 3350 (17GM) 1 DOSE PACK PO SCH (22:01)
[2018-09-12] MEDS: HYDROCODONE/ACETAMINOPHEN 5/325MG TABLET PO PRN ×2 (01:49→23:09)
[2018-09-12] MEDS: SODIUM CHLORIDE 0.9% INJ 3ML FLUSH IVF SCH ×3 (06:00→22:00)
[2018-09-12] MEDS: HYDRALAZINE HCL 100MG TABLET PO SCH ×2 (06:38→13:28)
[2018-09-12] MEDS: BLOOD SUGAR DIAGNOSTIC STRIP TEST SCH ×4 (06:38→20:51)
[2018-09-12 08:00] VITALS: BP 122/58
[2018-09-12] MEDS: LIDOCAINE 5% PATCH TOP SCH (09:00)
[2018-09-12] MEDS: INSULIN LISPRO 100 UNITS/ML SUBCUT SCH ×4 (09:00→20:52)
[2018-09-12] MEDS: TAMSULOSIN HCL 0.4MG SR CAPSULE PO SCH (10:30)
[2018-09-12] MEDS: FOLIC ACID/VITAMIN B COMP W-C TABLET PO SCH (10:30)
[2018-09-12] MEDS: SEVELAMER CARBONATE 800 MG TABLET PO SCH ×3 (10:30→17:23)
[2018-09-12] MEDS: LEVETIRACETAM 500MG TABLET PO SCH ×2 (10:31→20:41)
[2018-09-12] MEDS: DOCUSATE SODIUM 100MG CAPSULE PO SCH ×2 (10:31→17:23)
[2018-09-12] MEDS: AMMONIUM LACTATE 12% LOTION 240ML TOP SCH ×2 (10:36→20:51)
[2018-09-12 20:00] VITALS: BP 167/70
[2018-09-12] MEDS: POLYETHYLENE GLYCOL 3350 (17GM) 1 DOSE PACK PO SCH (20:41)
[2018-09-12] MEDS: ATORVASTATIN CALCIUM 40MG TABLET PO SCH (20:41)
[2018-09-13] MEDS: CLONIDINE 0.1MG TABLET PO PRN ×2 (00:03→23:03)
[2018-09-13] MEDS: HYDRALAZINE HCL 100MG TABLET PO SCH ×4 (00:03→21:23)
[2018-09-13] MEDS: BLOOD SUGAR DIAGNOSTIC STRIP TEST SCH ×4 (05:40→21:19)
[2018-09-13] MEDS: SODIUM CHLORIDE 0.9% INJ 3ML FLUSH IVF SCH ×3 (05:41→21:19)
[2018-09-13 07:50] LABS: BASOPHILS % 0.9 % (0.0-2.0); HEMATOCRIT. 31.7 % (42.0-52.0); HEMOGLOBIN. 10.3 g/dL (14.0-18.0); MEAN CORPUSCULAR HEMOGLOBIN 29.4 pg (28.0-32.0); MEAN CORPUSCULAR VOLUME 90.6 fL (80.0-94.0); MEAN PLATELET VOLUME 8.4 fl (7.4-10.4); MONOCYTES % 11.2 % (2.0-8.0); NEUTROPHILS % 59.9 % (40.0-76.0); PLATELET 198 x1000/uL (130-400); RED CELL DISTRIBUTION WIDTH 16.1 % (11.6-14.6)
[2018-09-13 08:09] VITALS: BP 125/48
[2018-09-13] MEDS: INSULIN LISPRO 100 UNITS/ML SUBCUT SCH ×4 (09:00→21:00)
[2018-09-13] MEDS: SEVELAMER CARBONATE 800 MG TABLET PO SCH ×3 (09:47→18:11)
[2018-09-13] MEDS: FOLIC ACID/VITAMIN B COMP W-C TABLET PO SCH (09:47)
[2018-09-13] MEDS: ERGOCALCIFEROL 50000UNITS CAPSULE PO SCH (09:48)
[2018-09-13] MEDS: LEVETIRACETAM 500MG TABLET PO SCH ×2 (09:48→20:47)
[2018-09-13] MEDS: TAMSULOSIN HCL 0.4MG SR CAPSULE PO SCH (09:48)
[2018-09-13] MEDS: DOCUSATE SODIUM 100MG CAPSULE PO SCH ×2 (09:48→18:11)
[2018-09-13] MEDS: TERBINAFINE HCL 1% CREAM 30GM TOP SCH (09:49)
[2018-09-13] MEDS: AMMONIUM LACTATE 12% LOTION 240ML TOP SCH ×2 (09:49→20:47)
[2018-09-13] MEDS ORDERED: LACTULOSE 20G/30ML UDC PO NR (13:45)
[2018-09-13 20:00] VITALS: BP 156/76
[2018-09-13] MEDS ORDERED: HYDROCODONE/ACETAMINOPHEN 10/325MG TABLET PO PRN (20:15)
[2018-09-13] MEDS: POLYETHYLENE GLYCOL 3350 (17GM) 1 DOSE PACK PO SCH (20:47)
[2018-09-13] MEDS: ATORVASTATIN CALCIUM 40MG TABLET PO SCH (20:47)
[2018-09-13] MEDS: HYDROCODONE/ACETAMINOPHEN 5/325MG TABLET PO PRN (20:48)
[2018-09-13] MEDS: BACITRACIN 15GM TUBE TOP SCH (20:48)
[2018-09-13 23:03] VITALS: BP 168/80
[2018-09-14 00:12] VITALS: BP 139/73
[2018-09-14] MEDS: HYDRALAZINE HCL 100MG TABLET PO SCH ×2 (05:17→13:46)
[2018-09-14] MEDS: SODIUM CHLORIDE 0.9% INJ 3ML FLUSH IVF SCH ×2 (05:17→13:46)
[2018-09-14] MEDS: BLOOD SUGAR DIAGNOSTIC STRIP TEST SCH ×2 (05:39→11:15)
[2018-09-14] MEDS: INSULIN LISPRO 100 UNITS/ML SUBCUT SCH ×2 (06:11→13:00)
[2018-09-14 07:48] LABS: PHOSPHORUS 3.4 mg/dL (2.5-4.9)
[2018-09-14 08:14] VITALS: BP 127/51
[2018-09-14] MEDS: LEVETIRACETAM 500MG TABLET PO SCH (08:40)
[2018-09-14] MEDS: FOLIC ACID/VITAMIN B COMP W-C TABLET PO SCH (08:40)
[2018-09-14] MEDS: SEVELAMER CARBONATE 800 MG TABLET PO SCH ×2 (08:40→13:46)
[2018-09-14] MEDS: DOCUSATE SODIUM 100MG CAPSULE PO SCH (08:40)
[2018-09-14] MEDS: BACITRACIN 15GM TUBE TOP SCH (08:40)
[2018-09-14] MEDS: TAMSULOSIN HCL 0.4MG SR CAPSULE PO SCH (08:40)
[2018-09-14] MEDS: AMMONIUM LACTATE 12% LOTION 240ML TOP SCH (08:40)
[2018-09-14] MEDS: TERBINAFINE HCL 1% CREAM 30GM TOP SCH (08:41)
[2018-09-14 10:11] VITALS: BP 127/57
[2018-09-14 11:47] VITALS: BP 125/60
[2018-09-14] MEDS: HYDROCODONE/ACETAMINOPHEN 5/325MG TABLET PO PRN (11:47)
== END 2018-09-14 16:20 | disposition home or self-care (01) | DRG 64 ==
PROVIDERS: ADMIT Physical Medicine & Rehabilitation Spinal Cord Injury Medicine; ATTEND Internal Medicine Nephrology
PROC: 5A1D70Z Performance of Urinary Filtration, Intermittent, Less than 6 Hours Per Day (ICD-10-PCS; 2018-09-01)
PROC: 0S9D3ZZ Drainage of Left Knee Joint, Percutaneous Approach (ICD-10-PCS; principal; 2018-09-02)
PROC: BQ48ZZZ Ultrasonography of Left Knee (ICD-10-PCS; 2018-09-02)
PROC: 5A1D70Z Performance of Urinary Filtration, Intermittent, Less than 6 Hours Per Day (ICD-10-PCS; 2018-09-03)
PROC: 5A1D70Z Performance of Urinary Filtration, Intermittent, Less than 6 Hours Per Day (ICD-10-PCS; 2018-09-06)
PROC: 5A1D70Z Performance of Urinary Filtration, Intermittent, Less than 6 Hours Per Day (ICD-10-PCS; 2018-09-08)
DX: I61.1 Nontraumatic intracerebral hemorrhage in hemisphere, cortical (principal); N18.6 End stage renal disease; I12.0 Hypertensive chronic kidney disease with stage 5 chronic kidney disease or end stage renal disease; E87.1 Hypo-osmolality and hyponatremia; G81.94 Hemiplegia, unspecified affecting left nondominant side; G95.9 Disease of spinal cord, unspecified; R47.01 Aphasia; E11.22 Type 2 diabetes mellitus with diabetic chronic kidney disease; N40.0 Benign prostatic hyperplasia without lower urinary tract symptoms; C02.9 Malignant neoplasm of tongue, unspecified; R41.3 Other amnesia; I44.1 Atrioventricular block, second degree; R00.1 Bradycardia, unspecified; E78.00 Pure hypercholesterolemia, unspecified; E04.2 Nontoxic multinodular goiter; D63.8 Anemia in other chronic diseases classified elsewhere; D72.819 Decreased white blood cell count, unspecified; E78.5 Hyperlipidemia, unspecified; E87.5 Hyperkalemia; I45.10 Unspecified right bundle-branch block; M17.12 Unilateral primary osteoarthritis, left knee; M25.462 Effusion, left knee; M48.03 Spinal stenosis, cervicothoracic region; R13.10 Dysphagia, unspecified; R47.1 Dysarthria and anarthria; R53.81 Other malaise; M23.207 Derangement of unspecified meniscus due to old tear or injury, left knee; B35.9 Dermatophytosis, unspecified; L85.9 Epidermal thickening, unspecified; M11.262 Other chondrocalcinosis, left knee; L60.3 Nail dystrophy; E11.621 Type 2 diabetes mellitus with foot ulcer; L97.519 Non-pressure chronic ulcer of other part of right foot with unspecified severity; K59.00 Constipation, unspecified; L60.2 Onychogryphosis; E55.9 Vitamin D deficiency, unspecified; Z99.2 Dependence on renal dialysis; Z85.810 Personal history of malignant neoplasm of tongue; Z91.19 Patient's noncompliance with other medical treatment and regimen; Z86.73 Personal history of transient ischemic attack (TIA), and cerebral infarction without residual deficits
CPT/HCPCS: 20611; 36415; 80048; 82306; 82607; 82728; 82746; 82962; 83540; 83550; 83735; 83970; 84100; 84134; 84153; 84443; 89060; 92523; 92610; 93970; 97110; 97112; 97116; 97162; 97166; 97530; 97535; G0515; J1815; J3420; J3490; G0103

== ENCOUNTER 2018-09-24 18:31 | Emergency (ER) | payer OTHER ==
[~2018-09-24] VITALS: Ht 170.2 cm; Wt 73.0 kg
[~2018-09-24 18:31] MED LIST changes: -ASPI-1159 MT; -FERR-71 MT; -FOLI1TAB33 MT; -LABE200T28 MT; -NIFE60TA64 MT; -OMEP20CA10 MT; -REN800 MT; -TAMS0.4C31 MT
[2018-09-24 21:22] LABS: CLARITY URINE CLEAR (CLEAR); COLOR URINE YELLOW (YELLOW); KETONES URINE NEGATIVE (NEGATIVE); LEUKOCYTE ESTERASE URINE NEGATIVE (NEGATIVE); NITRITE URINE NEGATIVE (NEGATIVE); OCCULT BLOOD URINE TRACE (NEGATIVE); PROTEIN URINE 4+ (NEGATIVE); SPECIFIC GRAVITY URINE 1.015 (1.005-1.030)
[2018-09-24] MEDS ORDERED: SODIUM CHLORIDE 0.9% 1,000 ML IV ONE (23:07)
[2018-09-24 23:54] LABS: BASOPHILS % 1.1 % (0.0-2.0); EOSINOPHILS % 1.3 % (0.0-5.0); HEMOGLOBIN. 8.3 g/dL (14.0-18.0); LYMPHOCYTES % 21.2 % (20.0-50.0); MEAN CORPUSCULAR HEMOGLOBIN 30.1 pg (28.0-32.0); MEAN CORPUSCULAR VOLUME 90.5 fL (80.0-94.0); MEAN PLATELET VOLUME 8.4 fl (7.4-10.4); MONOCYTES % 9.8 % (2.0-8.0); NEUTROPHILS % 66.6 % (40.0-76.0); PLATELET 151 x1000/uL (130-400); RED BLOOD CELL COUNT 2.76 mill/uL (4.7-6.1); RED CELL DISTRIBUTION WIDTH 17.3 % (11.6-14.6)
[2018-09-24 23:58] LABS: CHLORIDE 101 mEq/L (98-107)
[2018-09-25] MEDS ORDERED: CEPHALEXIN 250MG CAPSULE PO ONE (01:00)
[2018-09-25 02:11] VITALS: BP 162/88
== END 2018-09-25 02:14 | disposition home or self-care (01) ==
LOC: ER 18:31
DX: R33.9 Retention of urine, unspecified (principal); E11.22 Type 2 diabetes mellitus with diabetic chronic kidney disease; I12.0 Hypertensive chronic kidney disease with stage 5 chronic kidney disease or end stage renal disease; N18.6 End stage renal disease; Z86.73 Personal history of transient ischemic attack (TIA), and cerebral infarction without residual deficits; Z99.2 Dependence on renal dialysis; Z79.899 Other long term (current) drug therapy
CPT/HCPCS: 36415; 51702; 74176; 80053; 81003; 85025; 99284; J7030; A4315

== ENCOUNTER 2018-09-30 07:11 | Inpatient (IN) | payer MEDICARE, OTHER ==
[~2018-09-30] VITALS: Ht 177.8 cm; Wt 75.7 kg
[2018-09-30 08:57] LABS: CLARITY URINE CLOUDY (CLEAR); COLOR URINE YELLOW (YELLOW); KETONES URINE NEGATIVE (NEGATIVE); LEUKOCYTE ESTERASE URINE 2+ (NEGATIVE); NITRITE URINE NEGATIVE (NEGATIVE); OCCULT BLOOD URINE 2+ (NEGATIVE); PH URINE >=9.0 (4.5-8.0); PROTEIN URINE 4+ (NEGATIVE); UROBILINOGEN URINE 0.2 E.U./dL (0.2-1.0)
[2018-09-30] MEDS ORDERED: CEFTRIAXONE 1 G PREMIX 50 ML IV ONE (09:15)
[2018-09-30] MEDS ORDERED: AMLODIPINE 10MG TABLET PO ONE (09:15)
[2018-09-30] MEDS ORDERED: ACETAMINOPHEN 325MG TABLET PO NR (10:04)
[2018-09-30] MEDS ORDERED: SODIUM CHLORIDE 0.9% IV SCH (10:15)
[2018-09-30] MEDS ORDERED: SODIUM CHLORIDE 0.9% 1000ML BAG (SEPSIS BOLUS) IV ONE (10:15)
[2018-09-30 10:44] LABS: BASOPHILS % 0.4 % (0.0-2.0); EOSINOPHILS % 1.2 % (0.0-5.0); HEMATOCRIT. 22.3 % (42.0-52.0); HEMOGLOBIN. 7.4 g/dL (14.0-18.0); LYMPHOCYTES % 9.4 % (20.0-50.0); MEAN CORPUSCULAR HEMOGLOBIN 30.6 pg (28.0-32.0); MEAN CORPUSCULAR VOLUME 91.9 fL (80.0-94.0); MEAN PLATELET VOLUME 7.7 fl (7.4-10.4); MONOCYTES % 9.9 % (2.0-8.0); NEUTROPHILS % 79.1 % (40.0-76.0); PLATELET 175 x1000/uL (130-400); RED BLOOD CELL COUNT 2.43 mill/uL (4.7-6.1); RED CELL DISTRIBUTION WIDTH 17.6 % (11.6-14.6)
[2018-09-30 10:52] LABS: CHLORIDE 108 mEq/L (98-107)
[2018-09-30 10:53] LABS: INR 1.1; PROTHROMBIN TIME 10.6 sec (9.1-11.1)
[2018-09-30] MEDS ORDERED: HYDRALAZINE 20MG/ML VIAL IV ONE (11:00)
[2018-09-30] MEDS ORDERED: LABETALOL 5MG/ML SYR 20 MG/4 ML SYRINGE IV ONE (12:30)
[2018-09-30] MEDS ORDERED: GUAIFENESIN 200MG/10ML SUGAR FREE UDC PO PRN (13:00)
[2018-09-30] MEDS ORDERED: NITROGLYCERIN 0.4MG TABLET SL SL PRN (13:00)
[2018-09-30] MEDS ORDERED: MAGNESIUM/ALUMINUM HYDROXIDE/SIMETHICONE 30ML UDC PO PRN (13:00)
[2018-09-30] MEDS ORDERED: ACETAMINOPHEN 325MG TABLET PO PRN (13:00)
[2018-09-30] MEDS ORDERED: IPRATROPIUM/ALBUTEROL 0.5-3(2.5)MG/3ML NEB INH PRN (13:00)
[2018-09-30] MEDS ORDERED: DIPHENHYDRAMINE 50MG/ML VIAL IV PRN (13:00)
[2018-09-30] MEDS ORDERED: PIPERACILLIN/TAZ 3.375G PREMIX 50 ML IV SCH (13:00)
[2018-09-30] MEDS ORDERED: ONDANSETRON HCL 4MG/2ML INJ IV PRN (13:00)
[2018-09-30] MEDS ORDERED: CLONIDINE 0.2MG TABLET PO PRN (13:00)
[2018-09-30 16:21] VITALS: BP 176/76
[2018-09-30 16:30] VITALS: BP 176/76
[2018-09-30] MEDS: ENOXAPARIN 30MG/0.3ML SYR SUBCUT SCH (17:00)
[2018-09-30] MEDS ORDERED: DEXTROSE 50% WATER 50ML SYRINGE IV PRN (18:30)
[2018-09-30] MEDS: PIPERACILLIN/TAZ 2.25G PREMIX 50 ML IV SCH (19:02)
[2018-09-30 20:00] VITALS: BP 157/68
[2018-09-30] MEDS ORDERED: VANCOMYCIN 1250MG in DEXTROSE 5% WATER 250ML IV NR (20:00)
[2018-09-30] MEDS: INSULIN LISPRO 100 UNITS/ML SUBCUT SCH ×2 (21:00→21:51)
[2018-09-30] MEDS: HYDRALAZINE HCL 50MG TABLET PO SCH (21:49)
[2018-09-30] MEDS: METOPROLOL TARTRATE 25MG TABLET PO SCH (21:49)
[2018-09-30] MEDS: LISINOPRIL 20MG TABLET PO SCH (21:50)
[2018-09-30] MEDS: FAMOTIDINE 20MG TABLET PO SCH (21:50)
[2018-09-30] MEDS: TRAMADOL 50MG TABLET PO PRN (21:50)
[2018-09-30] MEDS: BLOOD SUGAR DIAGNOSTIC STRIP TEST SCH (21:51)
[2018-10-01] VITALS (9 sets, daily range): BP systolic 126–227; BP diastolic 62–114
[2018-10-01] MEDS: PIPERACILLIN/TAZ 2.25G PREMIX 50 ML IV SCH ×4 (00:52→23:30)
[2018-10-01] MEDS: LORAZEPAM 0.5MG TABLET PO PRN (00:52)
[2018-10-01] MEDS: TRAMADOL 50MG TABLET PO PRN ×2 (05:36→12:00)
[2018-10-01] MEDS: HYDRALAZINE HCL 50MG TABLET PO SCH ×3 (05:37→23:28)
[2018-10-01] MEDS: BLOOD SUGAR DIAGNOSTIC STRIP TEST SCH ×4 (06:20→21:00)
[2018-10-01 06:24] LABS: PHOSPHORUS 2.6 mg/dL (2.5-4.9)
[2018-10-01 06:28] LABS: CREATINE KINASE MB FRACTION 1.6 ng/mL (0.5-3.6)
[2018-10-01 06:51] LABS: BASOPHILS % 0.3 % (0.0-2.0); EOSINOPHILS % 2.5 % (0.0-5.0); HEMATOCRIT. 21.6 % (42.0-52.0); HEMOGLOBIN. 7.1 g/dL (14.0-18.0); LYMPHOCYTES % 17.5 % (20.0-50.0); MEAN CORPUSCULAR HEMOGLOBIN 30.3 pg (28.0-32.0); MEAN CORPUSCULAR VOLUME 92.3 fL (80.0-94.0); MEAN PLATELET VOLUME 8.3 fl (7.4-10.4); MONOCYTES % 11.9 % (2.0-8.0); NEUTROPHILS % 67.8 % (40.0-76.0); PLATELET 172 x1000/uL (130-400); RED BLOOD CELL COUNT 2.34 mill/uL (4.7-6.1); RED CELL DISTRIBUTION WIDTH 18.1 % (11.6-14.6)
[2018-10-01] MEDS: INSULIN LISPRO 100 UNITS/ML SUBCUT SCH ×2 (08:10→13:10)
[2018-10-01] MEDS: ASPIRIN 325MG EC TABLET PO SCH (11:50)
[2018-10-01] MEDS: FOLIC ACID/VITAMIN B COMP W-C TABLET PO SCH (11:51)
[2018-10-01] MEDS: DOCUSATE SODIUM 100MG CAPSULE PO PRN (11:51)
[2018-10-01] MEDS: FAMOTIDINE 20MG TABLET PO SCH (11:51)
[2018-10-01] MEDS: ENOXAPARIN 30MG/0.3ML SYR SUBCUT SCH (16:39)
[2018-10-01] MEDS ORDERED: MINOXIDIL 2.5MG TABLET PO SCH (21:00)
[2018-10-01] MEDS ORDERED: EPOETIN ALFA 10000UNITS/ML VIAL SUBCUT SCH (21:00)
[2018-10-01] MEDS: METOPROLOL TARTRATE 25MG TABLET PO SCH ×2 (23:28→23:31)
[2018-10-01] MEDS: ZOLPIDEM TARTRATE 5MG TABLET PO PRN (23:28)
[2018-10-01] MEDS: LISINOPRIL 20MG TABLET PO SCH ×2 (23:28→23:30)
[2018-10-02] VITALS (7 sets, daily range): BP systolic 152–170; BP diastolic 64–82
[2018-10-02] MEDS: BLOOD SUGAR DIAGNOSTIC STRIP TEST SCH ×4 (06:25→21:00)
[2018-10-02] MEDS: PIPERACILLIN/TAZ 2.25G PREMIX 50 ML IV SCH ×3 (06:26→22:24)
[2018-10-02] MEDS: TRAMADOL 50MG TABLET PO PRN ×2 (06:31→20:16)
[2018-10-02 06:35] LABS: BASOPHILS % 0.3 % (0.0-2.0); HEMATOCRIT. 26.4 % (42.0-52.0); HEMOGLOBIN. 8.8 g/dL (14.0-18.0); LYMPHOCYTES % 10.9 % (20.0-50.0); MEAN CORPUSCULAR HEMOGLOBIN 30.4 pg (28.0-32.0); MEAN CORPUSCULAR VOLUME 91.4 fL (80.0-94.0); MEAN PLATELET VOLUME 8.2 fl (7.4-10.4); MONOCYTES % 9.9 % (2.0-8.0); NEUTROPHILS % 75.9 % (40.0-76.0); PLATELET 191 x1000/uL (130-400); RED BLOOD CELL COUNT 2.89 mill/uL (4.7-6.1); RED CELL DISTRIBUTION WIDTH 17.7 % (11.6-14.6)
[2018-10-02] MEDS: INSULIN LISPRO 100 UNITS/ML SUBCUT SCH ×5 (08:10→21:00)
[2018-10-02] MEDS: SEVELAMER CARBONATE 800 MG TABLET PO SCH ×4 (08:10→18:50)
[2018-10-02] MEDS: AMLODIPINE 10MG TABLET PO SCH ×2 (09:00→09:26)
[2018-10-02] MEDS: ASPIRIN 325MG EC TABLET PO SCH (09:23)
[2018-10-02] MEDS: MINOXIDIL 2.5MG TABLET PO SCH ×2 (09:23→17:24)
[2018-10-02] MEDS: FOLIC ACID/VITAMIN B COMP W-C TABLET PO SCH (09:24)
[2018-10-02] MEDS: METOPROLOL TARTRATE 25MG TABLET PO SCH ×3 (09:24→21:55)
[2018-10-02] MEDS: LISINOPRIL 20MG TABLET PO SCH ×2 (09:26→21:26)
[2018-10-02] MEDS: DOCUSATE SODIUM 100MG CAPSULE PO PRN (09:32)
[2018-10-02] MEDS: HYDRALAZINE HCL 50MG TABLET PO SCH ×3 (12:53→21:57)
[2018-10-02] MEDS: LACTULOSE 20G/30ML UDC PO SCH ×2 (13:48→22:24)
[2018-10-02 15:41] LABS: CLARITY URINE CLOUDY (CLEAR); COLOR URINE YELLOW (YELLOW); KETONES URINE NEGATIVE (NEGATIVE); LEUKOCYTE ESTERASE URINE 3+ (NEGATIVE); NITRITE URINE NEGATIVE (NEGATIVE); OCCULT BLOOD URINE 2+ (NEGATIVE); PH URINE >=9.0 (4.5-8.0); PROTEIN URINE 4+ (NEGATIVE); SPECIFIC GRAVITY URINE 1.014 (1.005-1.030); UROBILINOGEN URINE 0.2 E.U./dL (0.2-1.0)
[2018-10-02] MEDS ORDERED: VANCOMYCIN 1 G PREMIX 200 ML IV NR (16:30)
[2018-10-02] MEDS: ENOXAPARIN 30MG/0.3ML SYR SUBCUT SCH ×2 (17:00→17:24)
[2018-10-02] MEDS: LORAZEPAM 0.5MG TABLET PO PRN (20:15)
[2018-10-02] MEDS: FAMOTIDINE 20MG TABLET PO SCH (21:24)
[2018-10-03] MEDS: ZOLPIDEM TARTRATE 5MG TABLET PO PRN ×2 (01:11→01:43)
[2018-10-03] MEDS: LACTULOSE 20G/30ML UDC PO SCH ×3 (05:32→20:30)
[2018-10-03] MEDS: PIPERACILLIN/TAZ 2.25G PREMIX 50 ML IV SCH ×3 (05:53→20:34)
[2018-10-03 06:49] LABS: BASOPHILS % 0.4 % (0.0-2.0); EOSINOPHILS % 2.6 % (0.0-5.0); HEMATOCRIT. 30.4 % (42.0-52.0); LYMPHOCYTES % 13.4 % (20.0-50.0); MEAN CORPUSCULAR HEMOGLOBIN 29.9 pg (28.0-32.0); MEAN CORPUSCULAR VOLUME 90.7 fL (80.0-94.0); MEAN PLATELET VOLUME 7.9 fl (7.4-10.4); NEUTROPHILS % 73.6 % (40.0-76.0); PLATELET 255 x1000/uL (130-400); RED BLOOD CELL COUNT 3.35 mill/uL (4.7-6.1); RED CELL DISTRIBUTION WIDTH 17.8 % (11.6-14.6)
[2018-10-03] MEDS: BLOOD SUGAR DIAGNOSTIC STRIP TEST SCH ×4 (06:53→21:43)
[2018-10-03 08:00] VITALS: BP 141/61
[2018-10-03] MEDS: INSULIN LISPRO 100 UNITS/ML SUBCUT SCH ×4 (08:10→21:00)
[2018-10-03] MEDS: SEVELAMER CARBONATE 800 MG TABLET PO SCH ×3 (09:39→18:32)
[2018-10-03] MEDS: HYDRALAZINE HCL 50MG TABLET PO SCH (09:39)
[2018-10-03] MEDS: ASPIRIN 325MG EC TABLET PO SCH (09:39)
[2018-10-03] MEDS: FOLIC ACID/VITAMIN B COMP W-C TABLET PO SCH (09:39)
[2018-10-03] MEDS: MINOXIDIL 2.5MG TABLET PO SCH (09:39)
[2018-10-03] MEDS: AMLODIPINE 10MG TABLET PO SCH (09:40)
[2018-10-03] MEDS: LISINOPRIL 20MG TABLET PO SCH ×2 (09:40→20:33)
[2018-10-03 12:00] VITALS: BP 142/74
[2018-10-03] MEDS ORDERED: LABETALOL HCL 200MG TABLET PO SCH ×2 (12:45→21:00)
[2018-10-03] MEDS: TRAMADOL 50MG TABLET PO PRN (13:30)
[2018-10-03] MEDS: NIFEDIPINE XL 60MG TAB PO SCH ×2 (13:30→20:34)
[2018-10-03] MEDS: LEVETIRACETAM 500MG/5ML CUP PO SCH ×2 (13:31→20:30)
[2018-10-03] MEDS: LORAZEPAM 0.5MG TABLET PO PRN (15:52)
[2018-10-03 16:00] VITALS: BP 113/61
[2018-10-03] MEDS: ENOXAPARIN 30MG/0.3ML SYR SUBCUT SCH (18:32)
[2018-10-03 20:00] VITALS: BP 117/52
[2018-10-03] MEDS: FAMOTIDINE 20MG TABLET PO SCH (20:31)
[2018-10-03] MEDS ORDERED: EPOETIN ALFA 4000UNITS/ML VIAL SUBCUT SCH (21:00)
[2018-10-03] MEDS ORDERED: ATORVASTATIN CALCIUM 40MG TABLET PO SCH (21:00)
[2018-10-04] VITALS: BP 125/71
[2018-10-04] MEDS: LORAZEPAM 0.5MG TABLET PO PRN (00:31)
[2018-10-04] MEDS: TRAMADOL 50MG TABLET PO PRN ×2 (01:56→05:17)
[2018-10-04 04:00] VITALS: BP 130/80
[2018-10-04] MEDS: LACTULOSE 20G/30ML UDC PO SCH (05:04)
[2018-10-04] MEDS: PIPERACILLIN/TAZ 2.25G PREMIX 50 ML IV SCH (05:04)
[2018-10-04] MEDS: BLOOD SUGAR DIAGNOSTIC STRIP TEST SCH (06:04)
[2018-10-04 06:38] LABS: BASOPHILS % 0.4 % (0.0-2.0); EOSINOPHILS % 2.5 % (0.0-5.0); HEMATOCRIT. 30.1 % (42.0-52.0); LYMPHOCYTES % 16.1 % (20.0-50.0); MEAN CORPUSCULAR HEMOGLOBIN 29.9 pg (28.0-32.0); PLATELET 233 x1000/uL (130-400); RED BLOOD CELL COUNT 3.35 mill/uL (4.7-6.1); RED CELL DISTRIBUTION WIDTH 17.2 % (11.6-14.6)
[2018-10-04 08:00] VITALS: BP 120/69
[2018-10-04] MEDS: INSULIN LISPRO 100 UNITS/ML SUBCUT SCH (08:10)
[2018-10-04 09:58] VITALS: BP 120/69
== END 2018-10-04 11:26 | disposition home health service (06) | DRG 871 ==
LOC: ER 07:20 → EDBEDREQ 10:55 → EDBEDREQSVC 10:55 → EDBEDREQ 11:16 → 7WST 11:16 → ENRESERV 11:55 → SUPCPDRO 12:58
PROVIDERS: ADMIT Internal Medicine; ATTEND Internal Medicine
PROC: 5A1D70Z Performance of Urinary Filtration, Intermittent, Less than 6 Hours Per Day (ICD-10-PCS; principal; 2018-09-30)
PROC: 30233N1 Transfusion of Nonautologous Red Blood Cells into Peripheral Vein, Percutaneous Approach (ICD-10-PCS; 2018-10-01)
DX: A41.9 Sepsis, unspecified organism (principal); N18.6 End stage renal disease; N39.0 Urinary tract infection, site not specified; N13.8 Other obstructive and reflux uropathy; I12.0 Hypertensive chronic kidney disease with stage 5 chronic kidney disease or end stage renal disease; D64.9 Anemia, unspecified; F14.10 Cocaine abuse, uncomplicated; N40.1 Benign prostatic hyperplasia with lower urinary tract symptoms; E11.22 Type 2 diabetes mellitus with diabetic chronic kidney disease; C02.9 Malignant neoplasm of tongue, unspecified; E78.5 Hyperlipidemia, unspecified; R33.8 Other retention of urine; E78.00 Pure hypercholesterolemia, unspecified; B95.2 Enterococcus as the cause of diseases classified elsewhere; Z79.4 Long term (current) use of insulin; Z85.810 Personal history of malignant neoplasm of tongue; Z86.73 Personal history of transient ischemic attack (TIA), and cerebral infarction without residual deficits; Z87.891 Personal history of nicotine dependence; Z99.2 Dependence on renal dialysis
CPT/HCPCS: 36415; 36430; 71045; 80048; 80061; 80202; 82550; 82553; 82962; 83036; 83605; 84100; 84145; 84484; 86850; 86900; 86920; 87077; 87186; 93005; 93306; 93970; 96365; 96375; 97165; 99285; J0360; J0696; J1200; J1650; J1815; J2543; J3370; J3490; J7050; J7060; P9016

== ENCOUNTER 2020-02-12 21:53 | Inpatient (IN) | payer MEDICARE, OTHER ==
[~2020-02-12] VITALS: Ht 177.8 cm; Wt 64.0 kg
[2020-02-12 21:40] VITALS: BP 111/54
[2020-02-12 21:50] VITALS: BP 111/54
[~2020-02-12 21:53] MED LIST changes: +ASPI-1497 PO; +NIFE20CA PO
[2020-02-13] VITALS: BP 111/58
[2020-02-13 04:00] VITALS: BP 108/55
[2020-02-13] MEDS: HYDROCODONE/ACETAMINOPHEN 5/325MG TABLET PO PRN (04:45)
[2020-02-13 06:53] LABS: BASOPHILS % 0.7 % (0.0-2.0); EOSINOPHILS % 6.5 % (0.0-5.0); HEMOGLOBIN. 8.6 g/dL (14.0-18.0); LYMPHOCYTES % 8.6 % (20.0-50.0); MEAN CORPUSCULAR HEMOGLOBIN 33.3 pg (28.0-32.0); MEAN CORPUSCULAR VOLUME 96.8 fL (80.0-94.0); MEAN PLATELET VOLUME 7.7 fl (7.4-10.4); MONOCYTES % 10.5 % (2.0-8.0); NEUTROPHILS % 73.7 % (40.0-76.0); PLATELET 206 x1000/uL (130-400); RED BLOOD CELL COUNT 2.59 mill/uL (4.7-6.1); RED CELL DISTRIBUTION WIDTH 13.5 % (11.6-14.6)
[2020-02-13 08:00] VITALS: BP 127/73
[2020-02-13] MEDS ORDERED: HYDR-3281 PO (08:09)
[2020-02-13] MEDS ORDERED: LABE200T28 PO (08:12)
[2020-02-13] MEDS ORDERED: MOM PO (08:18)
[2020-02-13] MEDS ORDERED: TOPUD PO (08:18)
[2020-02-13] MEDS ORDERED: SIME80TA15 PO (08:18)
[2020-02-13] MEDS ORDERED: BISA10SU62 RC (08:20)
[2020-02-13] MEDS ORDERED: CHOL200077 PO (08:20)
[2020-02-13] MEDS ORDERED: FERR325T6 PO (08:20)
[2020-02-13] MEDS ORDERED: MELA1TAB9 PO (08:22)
[2020-02-13] MEDS ORDERED: AMIN30LI2 PO (08:22)
[2020-02-13] MEDS ORDERED: NEPVIT PO (08:22)
[2020-02-13] MEDS: ENOXAPARIN 30MG/0.3ML SYR SUBCUT SCH ×2 (09:00→10:49)
[2020-02-13] MEDS ORDERED: ENOXAPARIN 40MG/0.4ML SYR SUBCUT SCH (09:00)
[2020-02-13] MEDS ORDERED: SIMETHICONE 80MG TABLET CHEW PO PRN (09:15)
[2020-02-13] MEDS ORDERED: ACETAMINOPHEN 325MG TABLET PO PRN (09:15)
[2020-02-13] MEDS ORDERED: FOLIC ACID/VITAMIN B COMP W-C TABLET PO SCH (10:00)
[2020-02-13] MEDS: BISACODYL 10MG SUPP RC SCH (10:00)
[2020-02-13] MEDS: FERROUS SULFATE 325MG TABLET PO SCH (10:48)
[2020-02-13] MEDS: FOLIC ACID/VITAMIN B COMP W-C TABLET PO SCH (10:48)
[2020-02-13] MEDS: CHOLECALCIFEROL (D3) 1000 UNIT TABLET PO SCH (10:49)
[2020-02-13] MEDS: ASPIRIN 81MG EC TABLET PO SCH (10:49)
[2020-02-13] MEDS: MAGNESIUM HYDROXIDE 400MG/5ML 30ML UDC PO SCH (10:49)
[2020-02-13 12:00] VITALS: BP 138/66
[2020-02-13] MEDS ORDERED: HEPARIN SODIUM 1,000 UNIT/1ML VIAL IV NR (16:15)
[2020-02-13] MEDS: HYDROCODONE/ACETAMINOPHEN 10/325MG TABLET PO PRN ×2 (16:42→21:13)
[2020-02-13 20:00] VITALS: BP 122/60
[2020-02-13] MEDS: NIFEDIPINE XL 90MG TAB PO SCH (20:46)
[2020-02-13] MEDS: VANCOMYCIN 1 G PREMIX 200 ML IV SCH (20:46)
[2020-02-13] MEDS: LABETALOL HCL 200MG TABLET PO SCH (20:46)
[2020-02-14] VITALS: BP 119/53
[2020-02-14] MEDS: HYDROCODONE/ACETAMINOPHEN 10/325MG TABLET PO PRN ×4 (01:16→20:56)
[2020-02-14 04:00] VITALS: BP 154/76
[2020-02-14 08:00] VITALS: BP 157/71
[2020-02-14] MEDS: NIFEDIPINE XL 90MG TAB PO SCH ×2 (08:23→20:56)
[2020-02-14] MEDS: ASPIRIN 81MG EC TABLET PO SCH (08:23)
[2020-02-14] MEDS: FOLIC ACID/VITAMIN B COMP W-C TABLET PO SCH (08:23)
[2020-02-14] MEDS: ENOXAPARIN 30MG/0.3ML SYR SUBCUT SCH (08:24)
[2020-02-14] MEDS: LABETALOL HCL 200MG TABLET PO SCH ×2 (08:24→20:56)
[2020-02-14] MEDS: BISACODYL 10MG SUPP RC SCH (08:24)
[2020-02-14] MEDS: CHOLECALCIFEROL (D3) 1000 UNIT TABLET PO SCH (08:24)
[2020-02-14] MEDS: MAGNESIUM HYDROXIDE 400MG/5ML 30ML UDC PO SCH (08:25)
[2020-02-14] MEDS: VANCOMYCIN 1 G PREMIX 200 ML IV SCH (11:32)
[2020-02-14 12:00] VITALS: BP 126/73
[2020-02-14 16:00] VITALS: BP 102/54
[2020-02-14 20:00] VITALS: BP 119/56
[2020-02-15] VITALS: BP 118/64
[2020-02-15] MEDS: HYDROCODONE/ACETAMINOPHEN 10/325MG TABLET PO PRN (03:08)
[2020-02-15 04:00] VITALS: BP 103/52
[2020-02-15 08:00] VITALS: BP 128/74
[2020-02-15] MEDS: ASPIRIN 81MG EC TABLET PO SCH ×2 (09:00→11:59)
[2020-02-15] MEDS: MAGNESIUM HYDROXIDE 400MG/5ML 30ML UDC PO SCH (09:00)
[2020-02-15] MEDS: NIFEDIPINE XL 90MG TAB PO SCH ×2 (09:00→21:39)
[2020-02-15] MEDS: ENOXAPARIN 30MG/0.3ML SYR SUBCUT SCH (09:00)
[2020-02-15] MEDS: LABETALOL HCL 200MG TABLET PO SCH ×2 (09:00→21:39)
[2020-02-15] MEDS: BISACODYL 10MG SUPP RC SCH (09:00)
[2020-02-15] MEDS: FOLIC ACID/VITAMIN B COMP W-C TABLET PO SCH ×2 (11:29→11:59)
[2020-02-15] MEDS: CHOLECALCIFEROL (D3) 1000 UNIT TABLET PO SCH (11:59)
[2020-02-15] MEDS: FERROUS SULFATE 325MG TABLET PO SCH (11:59)
[2020-02-15 12:00] VITALS: BP 113/63
[2020-02-15] MEDS: HYDROCODONE/ACETAMINOPHEN 5/325MG TABLET PO PRN (14:21)
[2020-02-15 20:09] VITALS: BP 114/51
[2020-02-15 20:23] VITALS: BP 129/65
== END 2020-02-15 22:35 | DRG 157 ==
LOC: 6EST 21:53
PROVIDERS: ADMIT Internal Medicine Nephrology; ATTEND Internal Medicine Nephrology
PROC: 5A1D70Z Performance of Urinary Filtration, Intermittent, Less than 6 Hours Per Day (ICD-10-PCS; principal; 2020-02-14)
DX: K12.2 Cellulitis and abscess of mouth (principal); N18.6 End stage renal disease; L03.211 Cellulitis of face; E11.52 Type 2 diabetes mellitus with diabetic peripheral angiopathy with gangrene; L97.419 Non-pressure chronic ulcer of right heel and midfoot with unspecified severity; I12.0 Hypertensive chronic kidney disease with stage 5 chronic kidney disease or end stage renal disease; I96 Gangrene, not elsewhere classified; E11.22 Type 2 diabetes mellitus with diabetic chronic kidney disease; E11.621 Type 2 diabetes mellitus with foot ulcer; Z53.20 Procedure and treatment not carried out because of patient's decision for unspecified reasons; L97.529 Non-pressure chronic ulcer of other part of left foot with unspecified severity; E11.42 Type 2 diabetes mellitus with diabetic polyneuropathy; R26.9 Unspecified abnormalities of gait and mobility; E78.5 Hyperlipidemia, unspecified; R47.02 Dysphasia; E87.5 Hyperkalemia; D64.9 Anemia, unspecified; Z86.73 Personal history of transient ischemic attack (TIA), and cerebral infarction without residual deficits; Z99.2 Dependence on renal dialysis; Z85.810 Personal history of malignant neoplasm of tongue; Z92.3 Personal history of irradiation; Z92.21 Personal history of antineoplastic chemotherapy; Z87.891 Personal history of nicotine dependence; R53.81 Other malaise
CPT/HCPCS: 36415; 70486; 70490; 73630; 80048; 83036; 85025; 92610; 93923; 97162; 97530; J1644; J1650; J3370